=== PATIENT | male | born 1995 | race African-American/Black ===

== ENCOUNTER 2016-06-26 10:01 | Emergency (ER) | payer OTHER ==
[~2016-06-26] VITALS: Ht 195.6 cm; Wt 86.2 kg
[~2016-06-26 10:01] MED LIST: IBUPROFEN; ONDAN4ODT PO
--- NOTE | 2016-06-26 11:00 | ED General ---
General Chief Complaint: General Problems/Pain Stated Complaint: STOMACH PAIN/DIARRHEA Nursing Triage Note: AMB TO ROOM C/O ABD CRAMPING WITH DIARRHEA LAST STOOL THIS AM CONGESTION SORE THROAT. Nursing Sepsis Screen: No Definite Risk Source of Information: Patient History of Present Illness Time Seen by Provider: 10:45 Initial Comments MULTIPLE COMPLAINTS C/O ABDOMINAL CRAMPING WITH NAUSEA/VOMITING/DIARRHEA SINCE YESTERDAY--VOMITED X 2 YESTERDAY, DIARRHEA X 1 THIS AM. ABLE TO KEEP DOWN LIQUIDS C/O COUGH--OCCASIONAL CLEAR SPUTUM C/O NASAL CONGESTION C/O SORE THROAT C/O HEADACHE C/O BODY ACHES HAS HAD SUBJECTIVE FEVER/SWEATS NO CHEST PAIN OR SHORTNESS OF BREATH NO DIFFICULTY URINATING NO KNOWN SICK CONTACTS HAS TAKEN NOTHING FOR SYMPTOMS NO DR--STATES HE NORMALLY GOES TO [facility] ER FOR ALL MEDICAL CARE Allergies and Home Medications Allergies Coded Allergies: NKANo Known Allergies (Unverified Allergy, Mild, 12/13/08) Home Medications No Active Prescriptions or Reported Meds Constitutional: see HPI chills diaphoresis fever malaise EENTM: nose congestion throat pain Respiratory: cough dyspnea on exertionNo short of breath, No wheezing Cardiovascular: no symptoms reportedNo chest pain Gastrointestinal: see HPI abdominal pain diarrhea nausea vomiting Genitourinary: no symptoms reported Musculoskeletal: see HPI (BODY ACHES) Skin: no symptoms reported Psychiatric/Neurological: See HPI HeadacheDenies Numbness, Denies Paresthesia , Denies Seizure, Denies Tingling, Denies Tremors, Denies Weakness Hematologic/Lymphatic: No Symptoms Reported Immunological/Allergic: no symptoms reported Past Ncwzfhc-Poaagc-Uhxdkp Hx Patient Social History Alcohol Use: Denies Use Recreational Drug Use: No Smoking Status: Never a Smoker Recent Foreign Travel: No Contact w/Someone Who Travel: No Recent Infectious Disease Expo: No Recent Hopitalizations: No Physical Abuse Screen: No Sexual Abuse: No Seasonal Allergies Seasonal Allergies: No Surgeries HX Surgeries: No Respiratory Hx Respiratory Disorders: No Cardiovascular Hx Cardiac Disorders: No Neurological Hx Neurological Disorders: No Genitourinary Hx Genitourinary Disorders: No Gastrointestinal Hx Gastrointestinal Disorders: No Musculoskeletal Hx Musculoskeletal Disorders: No Endocrine Hx Endocrine Disorders: No HEENT HX ENT Disorders: No Cancer Hx Cancer: No Psychosocial Hx Psychiatric Problems: No Integumentary HX Skin/Integumentary Disorder: No Blood Transfusions Hx Blood Disorders: No Adverse Reaction to a Blood Tr: No Physical Exam Vital Signs Vital Sign - Last 12Hours 06/26/16 10:26 Temp 97.3 Pulse 71 Resp 18 B/P 147/87 Pulse Ox 95 O2 Delivery Room Air Capillary Refill : Less Than 3 Seconds General Appearance: No Apparent Distress WD/WN Thin HEENT: PERRL/EOMI TMs Normal Normal ENT Inspection Pharynx Normal Neck: Full Range of Motion Normal Inspection Non Tender SuppleNo Lymphadenopathy (L), No Lymphadenopathy (R) Respiratory: Normal Breath Sounds No Accessory Muscle Use No Respiratory Distress Cardiovascular: Regular Rate, Rhythm No Edema No JVD No Murmur Normal Peripheral Pulses Gastrointestinal: Normal Bowel Sounds No Organomegaly No Pulsatile Mass Non Tender Soft Back: Normal Inspection No CVA Tenderness No Vertebral Tenderness Extremity: Normal Capillary Refill Normal Inspection Normal Range of Motion Non Tender No Calf Tenderness No Pedal Edema Neurologic/Psychiatric: Alert Oriented x3 No Motor/Sensory Deficits Normal Mood/Affect mixer runner II-XII Norm as Tested Skin: Normal Color Warm/DryNo Rash Progress/Results/Core Measures Results/Orders Micro Results Microbiology 06/26/16 Influenza Types A,B Antigen (TYRESE) - Final, Complete My Orders Orders-ANDRY CIFUENTES DO Influenza A And B Antigens (06/26/16 10:55) Vital Signs/I&O Vital Sign - Last 12Hours 06/26/16 10:26 Temp 97.3 Pulse 71 Resp 18 B/P 147/87 Pulse Ox 95 O2 Delivery Room Air Blood Pressure Mean: 107 Departure Impression Impression: Primary Impression: Viral syndrome Disposition: 01 HOME, SELF-CARE Condition: Stable Departure-Patient Inst. Referrals: NO,LOCAL PHYSICIAN (PCP/Family) Primary Care Physician Patient Instructions: VIRAL SYNDROME Add. Discharge Instructions: LOTS OF CLEAR LIQUIDS--WATER, BROTH, JELLO, GATORADE BRATS DIET--BANANAS, RICE, APPLESAUCE, TOAST, SALTINES TYLENOL 1 GRAM / MOTRIN 800 MG NEEDED FOR PAIN OR FEVER ROBITUSSIN DM FOR COUGH ] FOLLOW UP WITH DR OF CHOICE IN 2-3 DAYS IF NO BETTER All discharge instructions reviewed with patient and/or family. Voiced understanding. Scripts Benzonatate (Tessalon Perle)100 Mg [id number] Mg PO TID COUGH #20 CAP Prov:ANDRY CIFUENTES DO 06/26/16 Ondansetron (Zofran Odt)4 Mg Tab.rapdis4 Mg PO Q4H Nausea/Vomiting #10 TAB Prov:ANDRY CIFUENTES DO 06/26/16 Work/School Note: Work Release Form Date Seen in the Emergency Department: Jun 26, 2016 Return to Work: Jun 28, 2016 Restrictions: No Restrictions ANDRY CIFUENTES DO Jun 26, 2016 11:00
[2016-06-26] MEDS ORDERED: ONDA4TAB8 PO (11:29)
[2016-06-26] MEDS ORDERED: BENZ-13 PO (11:29)
[2016-06-26 11:34] VITALS: BP 140/70
== END 2016-06-26 11:34 | disposition home or self-care (01) ==
LOC: EDUNIT# 10:01 → ER 10:03
DX: R19.7 Diarrhea, unspecified (principal); B34.9 Viral infection, unspecified
CPT/HCPCS: 87804; 99283

== ENCOUNTER 2016-07-31 15:14 | Emergency (ER) | payer OTHER ==
[~2016-07-31] VITALS: Ht 195.6 cm; Wt 86.2 kg
[~2016-07-31 15:14] MED LIST changes: +BENZ-13 PO; +ONDA4TAB8 PO
--- OUTSIDE RECORDS SUMMARY | 2016-07-31 15:19 | XMS REPORT | Continuity of Care Document ---
Author Author [facility] Organization [facility] Address Unknown Phone Unavailable Care Team Providers Care Commercial Underwriter Name Role Phone NO, LOCAL PHYSICIAN PCP Unavailable Insurance Providers Payer Name Policy Number Subscriber Name Relationship Self Pay Joshua Salgado 18 Self / Same As Patient Advance Directives Directive Response Recorded Date/Time Advance Directives No 06/26/16 10:41am Health Care Power of Airline Transport Pilot No 06/26/16 10:41am Organ Donor No 06/26/16 10:41am Resuscitation Status Full Code 06/26/16 10:41am Chief Complaint and Reason for Visit Chief Complaint General Problems/Pain Reason for Visit [id number] Problems Active Problems Medical Problem Onset Date Status Atypical chest pain Unknown Acute Atypical chest pain Unknown Acute Viral syndrome Unknown Acute Medications Current Home Medications Medication Dose Units Route Directions Days/Qty Instructions Start Date Ondansetron 4 Mg 4 Mg Oral Every 4HRS for Nausea/Vomiting 06/26/16 Benzonatate 100 Mg 100 Mg Oral Three Times A Day for Cough 06/26/16 Past Home Medications Medication Directions Ordered Status Ibuprofen , 12/13/08 Discontinued Ondansetron Hcl 4 Mg Tab, 4 Mg Oral Every 4HRS 12/29/10 Discontinued Social History Social History Problem Response Recorded Date/Time Alcohol Use Occasionally Uses 06/20/2014 6:17pm Recreational Drug Use No 06/20/2014 6:17pm Recent Foreign Travel No 06/26/2016 10:26am Recent Infectious Disease Exposure No 06/26/2016 10:26am Hospitalization with Isolation Denies 06/26/2016 10:26am Smoking Status Never a Smoker 06/26/2016 10:41am Recent Hopitalizations No 06/26/2016 10:41am Hospitalization with Isolation Denies 06/26/2016 10:26am Query Response Start Date Stop Date Smoking Status Never a Smoker Hospital Discharge Instructions No hospital discharge instructions. Plan of Care Discharge Date 06/26/16 11:34am Disposition 01 HOME, SELF-CARE Condition at Discharge Stable Instructions/Education Provided VIRAL SYNDROME Forms Provided Work Release Form Prescriptions See Medication Section Referrals NO,LOCAL PHYSICIAN - Primary Care Physician Additional Instructions/Education LOTS OF CLEAR LIQUIDS--WATER, BROTH, JELLO, GATORADE BRATS DIET--BANANAS, RICE, APPLESAUCE, TOAST, SALTINES TYLENOL 1 GRAM / MOTRIN 800 MG NEEDED FOR PAIN OR FEVER ROBITUSSIN DM FOR COUGH ] FOLLOW UP WITH DR OF CHOICE IN 2-3 DAYS IF NO BETTER All discharge instructions reviewed with patient and/or family. Voiced understanding. Functional Status No functional status results. Allergies, Adverse Reactions, Alerts Allergen Type Severity Reaction Status Last Updated NKANo Known Allergies Allergy Mild Active 12/13/08 Immunizations No immunization records. Vital Signs Acute Vital Signs Vital Response Date/Time Temperature (Fahrenheit) 97.3 degrees F (97.6 - 99.5) 06/26/2016 10:26am Temperature (Calculated Celsius) 36.96099 degrees C (36.4 - 37.5) 06/26/2016 10:26am Pulse Rate (adult) 71 bpm (60 - 90) 06/26/2016 10:26am Respiratory Rate 18 bpm (12 - 24) 06/26/2016 10:26am O2 Sat by Pulse Oximetry 95 % (88 - 100) 06/26/2016 10:26am Blood Pressure 147/87 mm Hg 06/26/2016 10:26am Blood Pressure Mean 107 mm Hg 06/26/2016 10:26am Pain Numeric Pain Scale 7 06/26/2016 10:26am Height (Feet) 6 feet 06/26/2016 10:26am Height (Inches) 5 inches 06/26/2016 10:26am Height (Calculated Centimeters) 195.308036 cm 06/26/2016 10:26am Weight (Pounds) 190 pounds 06/26/2016 10:26am Weight (Calculated Kilograms) 86.281342 kilograms 06/26/2016 10:26am Capillary Refill Capillary Refill Less Than 3 Seconds 06/26/2016 10:26am Height 6 ft 5 in Weight 190 lb Body Mass Index 22.5 kg/m^2 Results No known relevant diagnostic tests, laboratory data and/or discharge summary. Procedures No known history of procedures. Encounters Encounter Location Arrival/Admit Date Discharge/Depart Date Attending Provider Departed Emergency Room [facility] 06/26/16 10:03am 07/12 11:34am ANDRY CIFUENTES DO Recent Diagnosis
[2016-07-31 15:57] LABS: BASOPHILS % (AUTO) 0 % (0-10); EOSINOPHILS % (AUTO) 0 % (0-10); LYMPHOCYTES # (AUTO) 2.3 X 10^3 (1.0-4.0); LYMPHOCYTES % (AUTO) 23 % (12-44); MEAN CORPUSCULAR HEMOGLOBIN 31 PG (25-34); MEAN CORPUSCULAR HGB CONC 36 G/DL (32-36); MEAN CORPUSCULAR VOLUME 84 FL (80-99); MEAN PLATELET VOLUME 9.2 FL (7.4-10.4); MONOCYTES # (AUTO) 1.1 X 10^3 (0.0-1.0); MONOCYTES % (AUTO) 11 % (0-12); NEUTROPHILS # (AUTO) 6.4 X 10^3 (1.8-7.8); NEUTROPHILS % (AUTO) 66 % (42-75); PLATELET COUNT 236 10^3/uL (130-400); RED CELL DISTRIBUTION WIDTH 12.3 % (10.0-14.5); WHITE BLOOD COUNT 9.8 10^3/uL (4.3-11.0)
[2016-07-31 16:04] LABS: KETONES,URINE 2+ (NEGATIVE); LEUKOCYTE ESTERASE ,URINE NEGATIVE (NEGATIVE); NITRITE,URINE NEGATIVE (NEGATIVE); PH,URINE 6 (5-9); PROTEIN,URINE 2+ (NEGATIVE); UROBILINOGEN,URINE 8 MG/DL (NORMAL)
[2016-07-31 16:12] LABS: BILIRUBIN,URINE NEGATIVE (NEGATIVE)
[2016-07-31 16:14] LABS: ALANINE AMINOTRANSFERASE 64 U/L (0-55); ALBUMIN 4.6 G/DL (3.2-4.5); ANION GAP 13 MMOL/L (5-14); ASPARTATE AMINO TRANSFERASE 22 U/L (5-34); BILIRUBIN,TOTAL 2.9 MG/DL (0.1-1.0); BLOOD UREA NITROGEN 14 MG/DL (7-18); BUN/CREATININE RATIO 13; CALCIUM 9.6 MG/DL (8.5-10.1); CARBON DIOXIDE 22 MMOL/L (21-32); CHLORIDE 104 MMOL/L (98-107); GFR ESTIMATED > 60; GLUCOSE 101 MG/DL (70-105); LIPASE 9 U/L (8-78); POTASSIUM 3.5 MMOL/L (3.6-5.0); SODIUM 139 MMOL/L (135-145); TOTAL PROTEIN 7.4 G/DL (6.4-8.2)
[2016-07-31] MEDS ORDERED: NS IV 1000 ML 1,000 ML IV ONE (16:17)
[2016-07-31] MEDS ORDERED: ONDANSETRON 4 MG/2 ML (SDV) Z0FRAN IVP ONE (16:30)
--- NOTE | 2016-07-31 16:35 | ED GI ---
General Chief Complaint: Abdominal/GI Problems Stated Complaint: VOMITING/NO APPETITE Nursing Triage Note: Pt reports nausea and vomiting x5 days. Pt reports he has been unable to keep solid foods down but has been able to keep fluids and gatorade down. Pt denies abd pain or diarrhea. Sepsis Screen: No Definite Risk Source of Information: Patient Exam Limitations: No Limitations History of Present Illness Time Seen By Provider: 16:35 Initial Comments 20-year-old male patient presents to the emergency department complains of nausea and vomiting for 5 days. Denies abdominal pain, diarrhea, dysuria, frequency, hematuria. Patient is able to keep liquids down. Difficulty with solids. Timing/Duration: 4-5 Days, Constant Severity/Quality: Moderate Activities at Onset: None Modifying Factors: Worsens With Eating Allergies and Home Medications Allergies Coded Allergies: NKANo Known Allergies (Unverified Allergy, Mild, 12/13/08) Home Medications Benzonatate 100 Mg Capsule #20 100 MG PO TID Prescribed by: ANDRY CIFUENTES on 06/26/16 1129 Ondansetron 4 Mg Tab.rapdis #10 4 MG PO Q4H Prescribed by: ANDRY CIFUENTES on 06/26/16 1129 Ondansetron 8 Mg Tab.rapdis #10 8 MG PO Q6H PRN PRN NAUSEA/VOMITING Prescribed by: RAUL WARE on 07/31/16 1729 Review of Systems Constitutional: No chills, No dizziness, No fever, malaise other (fatigue) EENTM: No Symptoms Reported Respiratory: No Symptoms Reported Cardiovascular: No Symptoms Reported Gastrointestinal: See HPIDenies Abdomen Distended, Denies Abdominal Pain, Denies Constipated, Denies Diarrhea, Nausea Poor AppetiteDenies Poor Fluid Intake, Denies Rectal Bleeding, Vomiting Genitourinary: Denies Burning, Denies Discharge, Denies Frequency, Denies Flank Pain, Denies Hematuria, Denies Pain Musculoskeletal: no symptoms reported Skin: no symptoms reported Psychiatric/Neurological: No Symptoms Reported All Other Systems Reviewed Negative Unless Noted: Yes (Negative excepted noted.) Past Rqgoafi-Twsexv-Rwylxj Hx Patient Social History Alcohol Use: Denies Use Recreational Drug Use: No Smoking Status: Never a Smoker Recent Foreign Travel: No Contact w/Someone Who Travel: No Recent Infectious Disease Expo: No Recent Hopitalizations: No Seasonal Allergies Seasonal Allergies: No Surgeries HX Surgeries: No Respiratory Hx Respiratory Disorders: No Cardiovascular Hx Cardiac Disorders: No Neurological Hx Neurological Disorders: No Genitourinary Hx Genitourinary Disorders: No Gastrointestinal Hx Gastrointestinal Disorders: No Musculoskeletal Hx Musculoskeletal Disorders: No Endocrine Hx Endocrine Disorders: No HEENT HX ENT Disorders: No Cancer Hx Cancer: No Psychosocial Hx Psychiatric Problems: No Integumentary HX Skin/Integumentary Disorder: No Blood Transfusions Hx Blood Disorders: No Adverse Reaction to a Blood Tr: No Reviewed Nursing Assessment Reviewed/Agree w Nursing PMH: Yes Family Medical History Significant Family History: No Pertinent Family Hx Physical Exam Vital Signs VS - Last 72 Hours, by Label 07/31/16 07/31/16 15:40 17:38 Temp 97.7 97.7 Pulse 72 68 Resp 18 18 B/P 125/95 Pulse Ox 97 97 O2 Delivery Room Air Capillary Refill : Less Than 3 Seconds General Appearance: WD/WN no apparent distress HEENT: PERRL/EOMI pharynx normal Neck: supple normal inspection Respiratory: lungs clear normal breath sounds no respiratory distress Cardiovascular: normal peripheral pulses regular rate, rhythm no edema no murmur Gastrointestinal: normal bowel sounds non tender soft no organomegalyNo distended Extremities: no pedal edema normal capillary refill Neurologic/Psychiatric: alert normal mood/affect oriented x 3 Skin: normal color warm/dry Progress/Results/Core Measures Results/Orders Lab Results Laboratory Tests Test 07/31/16 15:47 07/31/16 15:56 Range/Units Alanine Aminotransferase (ALT/SGPT) 64 H 0-55 U/L Albumin 4.6 H 3.2-4.5 G/DL Alkaline Phosphatase 63 40-136 U/L Anion Gap 13 5-14 MMOL/L Aspartate Amino Transf (AST/SGOT) 22 5-34 U/L BUN/Creatinine Ratio 13 Basophils # (Auto) 0.0 0.0-0.1 10^3/uL Basophils (%) (Auto) 0 0-10 % Blood Urea Nitrogen 14 7-18 MG/DL Calcium Level 9.6 8.5-10.1 MG/DL Carbon Dioxide Level 22 21-32 MMOL/L Chloride Level 104 98-107 MMOL/L Creatinine 1.10 0.60-1.30 MG/DL Eosinophils # (Auto) 0.0 0.0-0.3 10^3/uL Eosinophils (%) (Auto) 0 0-10 % Estimat Glomerular Filtration Rate > 60 Glucose Level 101 70-105 MG/DL Hematocrit 43 40-54 % Hemoglobin 15.6 13.3-17.7 G/DL Lipase 9 8-78 U/L Lymphocytes # (Auto) 2.3 1.0-4.0 X 10^3 Lymphocytes (%) (Auto) 23 12-44 % Mean Corpuscular Hemoglobin 31 25-34 PG Mean Corpuscular Hemoglobin Concent 36 32-36 G/DL Mean Corpuscular Volume 84 80-99 FL Mean Platelet Volume 9.2 7.4-10.4 FL Monocytes # (Auto) 1.1 H 0.0-1.0 X 10^3 Monocytes (%) (Auto) 11 0-12 % Neutrophils # (Auto) 6.4 1.8-7.8 X 10^3 Neutrophils (%) (Auto) 66 42-75 % Platelet Count 236 130-400 10^3/uL Potassium Level 3.5 L 3.6-5.0 MMOL/L Red Blood Count 5.10 4.35-5.85 10^6/uL Red Cell Distribution Width 12.3 10.0-14.5 % Sodium Level 139 135-145 MMOL/L Total Bilirubin 2.9 H 0.1-1.0 MG/DL Total Protein 7.4 6.4-8.2 G/DL White Blood Count 9.8 4.3-11.0 10^3/uL Urine Bacteria NONE /HPF Urine Bilirubin NEGATIVE NEGATIVE Urine Casts NONE /LPF Urine Clarity CLEAR Urine Color YELLOW Urine Crystals NONE /LPF Urine Culture Indicated NO Urine Glucose (UA) NEGATIVE NEGATIVE Urine Ketones 2+ H NEGATIVE Urine Leukocyte Esterase NEGATIVE NEGATIVE Urine Mucus MODERATE H /LPF Urine Nitrite NEGATIVE NEGATIVE Urine Protein 2+ H NEGATIVE Urine RBC NONE /HPF Urine RBC (Auto) NEGATIVE NEGATIVE Urine Specific [place] 1.025 H 1.016-1.022 Urine Urobilinogen 8 H NORMAL MG/DL Urine WBC NONE /HPF Urine pH 6 5-9 RAUL Brown Cbc With Automated Diff (07/31/16 15:50) Comprehensive Metabolic Panel (07/31/16 15:50) Lipase (07/31/16 15:50) Ua Culture If Indicated (07/31/16 15:50) Saline Lock/Iv-Start (07/31/16 15:50) Ondansetron Injection (Zofran Injectio (07/31/16 16:30) Ns Iv 1000 Ml (Sodium Chloride 0.9%) (07/31/16 16:17) Rx-Ondansetron Po (Rx-Zofran Po) (07/31/16 17:26) Medications Given in ED Current Medications Medications Dose Ordered Sig/Dustin Route Start Time Stop Time Status Last Admin Dose Admin Ondansetron HCl 4 mg 4 mg ONCE ONCE IVP 07/31/16 16:30 07/31/16 16:31 DC 07/31/16 16:29 4 MG Sodium Chloride 1,000 ml @ 0 mls/hr Q0M ONCE IV 07/31/16 16:17 07/31/16 16:19 DC 07/31/16 16:29 999 MLS/HR Vital Signs/I&O Vital Sign - Last 12Hours 07/31/16 07/31/16 15:40 17:38 Temp 97.7 97.7 Pulse 72 68 Resp 18 18 B/P 125/95 Pulse Ox 97 97 O2 Delivery Room Air Blood Pressure Mean: 105 Departure Communication Progress Notes Laboratory findings discussed with the patient. Patient reports feeling better at this time. Reports he is feeling hungry for the first time in 5 days. Plan for discharge to home. All return precautions were discussed with the patient as described in the discharge instructions of this report. Patient voices understanding and agrees with the treatment plan. Impression Impression: Primary Impression: Nausea and vomiting Qualified Code: R11.2 - Nausea with vomiting, unspecified Disposition: 01 HOME, SELF-CARE Condition: Improved Departure-Patient Inst. Decision time for Depature: 17:28 Referrals: NO,LOCAL PHYSICIAN (PCP/Family) Primary Care Physician Patient Instructions: Nausea and Vomiting, Adult (DC) Add. Discharge Instructions: All discharge instructions reviewed with patient and/or family. Voiced understanding. Medications as instructed. Tylenol extra strength over-the- counter as directed for pain or fever. Ibuprofen 800 mg by mouth every 8 hours as needed for pain or fever. Push fluids. Alternate water and Gatorade/ Powerade. Low-fat, bland diet. Increase diet as tolerated. Follow-up with your family practitioner if no improvement in symptoms. Return to the emergency department for worsened vomiting, fever, abdominal pain, diarrhea, rectal bleeding, inability to urinate, blood in the urine, or any other concerns. Scripts Ondansetron (Ondansetron Odt)8 Mg Tab.rapdis8 Mg PO Q6H PRN NAUSEA/VOMITING #10 TAB Ref 0 Prov:RAUL WARE 07/31/16 Work/School Note: [employer], Work Release Form Date Seen in the Emergency Department: Jul 31, 2016 Return to Work: Aug 02, 2016 Restrictions: No Restrictions RAUL WARE Jul 31, 2016 16:35
[2016-07-31] MEDS ORDERED: RX-ONDANSETRON 4 MG ODT (ZOFRAN) PPK #4 PO STA (17:26)
[2016-07-31] MEDS ORDERED: ONDA8TAB13 PO (17:29)
[2016-07-31 17:38] VITALS: BP 118/87
[2016-08-01] MEDS ORDERED: PROC5TAB52 PO (16:06)
== END 2016-07-31 17:38 | disposition home or self-care (01) ==
LOC: EDUNIT# 15:14 → ER 15:15
DX: R11.2 Nausea with vomiting, unspecified (principal)
CPT/HCPCS: 36415; 80053; 81000; 83690; 85025; 96361; 96374

== ENCOUNTER 2016-08-01 13:59 | Emergency (ER) | payer OTHER ==
[~2016-08-01] VITALS: Ht 195.6 cm; Wt 86.2 kg
[~2016-08-01 13:59] MED LIST changes: +ONDA8TAB13 PO
--- OUTSIDE RECORDS SUMMARY | 2016-08-01 14:05 | XMS REPORT | Continuity of Care Document ---
Author Author [facility] Organization [facility] Address Unknown Phone Unavailable Care Team Providers Care Plate Setter Name Role Phone NO, LOCAL PHYSICIAN PCP Unavailable Insurance Providers Payer Name Policy Number Subscriber Name Relationship Self Pay Joshua Salgado 18 Self / Same As Patient Advance Directives Directive Response Recorded Date/Time Advance Directives No 06/26/16 10:41am Health Care Power of Stock Buyer No 06/26/16 10:41am Organ Donor No 06/26/16 10:41am Resuscitation Status Full Code 06/26/16 10:41am Chief Complaint and Reason for Visit Chief Complaint General Problems/Pain Reason for Visit [id number] Problems Active Problems Medical Problem Onset Date [...] - 99.5) 06/26/2016 10:26am Temperature (Calculated Celsius) 36.10159 degrees C (36.4 - 37.5) 06/26/2016 10:26am [...] 5 inches 06/26/2016 10:26am Height (Calculated Centimeters) 195.489595 cm 06/26/2016 10:26am Weight (Pounds) 190 pounds 06/26/2016 10:26am Weight (Calculated Kilograms) 86.250541 kilograms 06/26/2016 10:26am Capillary Refill Capillary Refill Less Than 3 Seconds 06/26/2016 10:26am Height 6 ft 5 in Weight 190 lb Body Mass Index 22.5 kg/m^2 Results No known relevant diagnostic tests, laboratory data and/or discharge summary. Procedures No known history of procedures. Encounters Encounter Location Arrival/Admit Date Discharge/Depart Date Attending Provider Departed Emergency Room [facility] 06/26/16 10:03am 07/12 11:34am ANDRY CIFUENTES DO Recent Diagnosis
[2016-08-01] MEDS ORDERED: diphenhydrAMINE 50 MG/ML INJ (BENADRYL) IVP ONE (14:45)
[2016-08-01] MEDS ORDERED: PROCHLORPERAZINE 10 MG/2ML INJ (COMPAZINE) IV ONE (14:45)
--- NOTE | 2016-08-01 14:49 | ED Abdominal Pain ---
General Chief Complaint: Abdominal/GI Problems Stated Complaint: VOMITING Nursing Triage Note: pt reports nausea/vomiting starting monday. pt cedts was seen in ed yesterday and given fluids and nausea medicine. Pt reports no improvement today. Sepsis Screen: No Definite Risk Source of Information: Patient Exam Limitations: No Limitations History of Present Illness Time Seen By Provider: 14:47 Initial Comments To ER with nausea and vomiting starting 5 days ago. He was seen here yesterday and given a prescription for Zofran as well as Zofran in the emergency room which helped his symptoms. Symptoms have returned today including nausea and vomiting without diarrhea and without abdominal pain. He states that he has not yet picked up a Zofran prescription. Timing/Duration: 1-2 Days Severity/Quality: Moderate Activities at Onset: None Associated Symptoms: Nausea/Vomiting Allergies and Home Medications Allergies Coded Allergies: NKANo Known Allergies (Unverified Allergy, Mild, 12/13/08) Home Medications Ondansetron 8 Mg Tab.rapdis #10 8 MG PO Q6H PRN PRN NAUSEA/VOMITING Prescribed by: RAUL WARE on 07/31/16 1729 Prochlorperazine Maleate 5 Mg Tablet #10 5 MG PO Q8H PRN PRN NAUSEA/VOMITING Prescribed by: LOWELL PATTERSON on 08/01/16 1606 Review of Systems Constitutional: see HPI EENTM: No Symptoms Reported Respiratory: No Symptoms Reported Cardiovascular: No Symptoms Reported Gastrointestinal: See HPIDenies Abdominal Pain, Nausea Vomiting Genitourinary: No Symptoms Reported Musculoskeletal: no symptoms reported Skin: no symptoms reported Psychiatric/Neurological: No Symptoms Reported Endocrine: No Symptoms Reported Past Xouhqei-Jhidzk-Tqbnjw Hx Patient Social History Alcohol Use: Denies Use Recreational Drug Use: Yes Drug of Choice: marijuana Smoking Status: Never a Smoker Recent Foreign Travel: No Contact w/Someone Who Travel: No Recent Infectious Disease Expo: No Recent Hopitalizations: No Seasonal Allergies Seasonal Allergies: No Surgeries HX Surgeries: No Respiratory Hx Respiratory Disorders: No Cardiovascular Hx Cardiac Disorders: No Neurological Hx Neurological Disorders: No Reproductive System Hx Reproductive Disorders: No Genitourinary Hx Genitourinary Disorders: No Gastrointestinal Hx Gastrointestinal Disorders: No Musculoskeletal Hx Musculoskeletal Disorders: No Endocrine Hx Endocrine Disorders: No HEENT HX ENT Disorders: No Cancer Hx Cancer: No Psychosocial Hx Psychiatric Problems: No Integumentary HX Skin/Integumentary Disorder: No Blood Transfusions Hx Blood Disorders: No Adverse Reaction to a Blood Tr: No Family Medical History Significant Family History: No Pertinent Family Hx Physical Exam Vital Signs VS - Last 72 Hours, by Label 08/01/16 14:39 Temp 99.1 Pulse 60 Resp 18 B/P 143/89 Pulse Ox 97 O2 Delivery Room Air Capillary Refill : Less Than 3 Seconds General Appearance: WD/WN no apparent distress HEENT: PERRL/EOMI normal ENT inspection Neck: non-tender full range of motion Respiratory: no respiratory distress no accessory muscle use Cardiovascular: regular rate, rhythm no murmur Gastrointestinal: normal bowel sounds non tender soft Extremities: normal range of motion non-tender normal inspection Neurologic/Psychiatric: alert normal mood/affect oriented x 3 Skin: normal color warm/dry Progress/Results/Core Measures Results/Orders Lab Results Laboratory Tests Test 08/01/16 14:57 Range/Units Alanine Aminotransferase (ALT/SGPT) 48 0-55 U/L Albumin 4.3 3.2-4.5 G/DL Alkaline Phosphatase 56 40-136 U/L Anion Gap 11 5-14 MMOL/L Aspartate Amino Transf (AST/SGOT) 18 5-34 U/L BUN/Creatinine Ratio 12 Basophils # (Auto) 0.0 0.0-0.1 10^3/uL Basophils (%) (Auto) 0 0-10 % Blood Urea Nitrogen 12 7-18 MG/DL Calcium Level 9.0 8.5-10.1 MG/DL Carbon Dioxide Level 24 21-32 MMOL/L Chloride Level 106 98-107 MMOL/L Creatinine 0.99 0.60-1.30 MG/DL Eosinophils # (Auto) 0.0 0.0-0.3 10^3/uL Eosinophils (%) (Auto) 0 0-10 % Estimat Glomerular Filtration Rate > 60 Glucose Level 90 70-105 MG/DL Hematocrit 41 40-54 % Hemoglobin 14.9 13.3-17.7 G/DL Lipase 6 L 8-78 U/L Lymphocytes # (Auto) 1.6 1.0-4.0 X 10^3 Lymphocytes (%) (Auto) 20 12-44 % Mean Corpuscular Hemoglobin 31 25-34 PG Mean Corpuscular Hemoglobin Concent 36 32-36 G/DL Mean Corpuscular Volume 84 80-99 FL Mean Platelet Volume 9.5 7.4-10.4 FL Monocytes # (Auto) 0.9 0.0-1.0 X 10^3 Monocytes (%) (Auto) 11 0-12 % Neutrophils # (Auto) 5.5 1.8-7.8 X 10^3 Neutrophils (%) (Auto) 68 42-75 % Platelet Count 220 130-400 10^3/uL Potassium Level 3.3 L 3.6-5.0 MMOL/L Red Blood Count 4.86 4.35-5.85 10^6/uL Red Cell Distribution Width 12.1 10.0-14.5 % Sodium Level 141 135-145 MMOL/L Total Bilirubin 2.8 H 0.1-1.0 MG/DL Total Protein 6.8 6.4-8.2 G/DL Ur Tricyclic Antidepressants Screen NEGATIVE NEGATIVE Urine Amphetamines Screen NEGATIVE NEGATIVE Urine Bacteria NEGATIVE /HPF Urine Barbiturates Screen NEGATIVE NEGATIVE Urine Benzodiazepines Screen NEGATIVE NEGATIVE Urine Bilirubin 1+ H NEGATIVE Urine Cannabinoids Screen POSITIVE H NEGATIVE Urine Casts NONE /LPF Urine Clarity CLEAR Urine Cocaine Screen NEGATIVE NEGATIVE Urine Color YELLOW Urine Crystals NONE /LPF Urine Culture Indicated NO Urine Glucose (UA) NEGATIVE NEGATIVE Urine Ketones 4+ H NEGATIVE Urine Leukocyte Esterase 1+ H NEGATIVE Urine Methadone Screen NEGATIVE NEGATIVE Urine Methamphetamines Screen NEGATIVE NEGATIVE Urine Mucus LARGE H /LPF Urine Nitrite NEGATIVE NEGATIVE Urine Opiates Screen NEGATIVE NEGATIVE Urine Oxycodone Screen NEGATIVE NEGATIVE Urine Phencyclidine Screen NEGATIVE NEGATIVE Urine Propoxyphene Screen NEGATIVE NEGATIVE Urine Protein 1+ H NEGATIVE Urine RBC NONE /HPF Urine RBC (Auto) NEGATIVE NEGATIVE Urine Specific [place] 1.015 L 1.016-1.022 Urine Urobilinogen 12 H NORMAL MG/DL Urine WBC RARE /HPF Urine pH 6.5 5-9 White Blood Count 8.1 4.3-11.0 10^3/uL My Orders Orders-LOWELL PATTERSON CAD SPECIALIST Cbc With Automated Diff (08/01/16 14:44) Comprehensive Metabolic Panel (08/01/16 14:44) Lipase (08/01/16 14:44) Ua Culture If Indicated (08/01/16 14:44) Drug Screen Stat (Urine) (08/01/16 14:44) Saline Lock/Iv-Start (08/01/16 14:44) Diphenhydramine Injection (Benadryl Inje (08/01/16 14:45) Prochlorperazine Injection (Compazine In (08/01/16 14:45) Ns Iv 1000 Ml (Sodium Chloride 0.9%) (08/01/16 15:15) Ns Iv 1000 Ml (Sodium Chloride 0.9%) (08/01/16 15:02) Us Gallbladder [id number] (08/01/16 15:33) Medications Given in ED Current Medications Medications Dose Ordered Sig/Dustin Route Start Time Stop Time Status Last Admin Dose Admin Diphenhydramine HCl 25 mg ONCE ONCE IVP 08/01/16 14:45 08/01/16 14:46 DC 08/01/16 15:04 25 MG Prochlorperazine Edisylate 5 mg ONCE ONCE IV 08/01/16 14:45 08/01/16 14:46 DC 08/01/16 15:05 5 MG Vital Signs/I&O Vital Sign - Last 12Hours 08/01/16 14:39 Temp 99.1 Pulse 60 Resp 18 B/P 143/89 Pulse Ox 97 O2 Delivery Room Air Blood Pressure Mean: 107 Diagnostic Imaging Diagonstic Imaging: Ultrasound Comments NAME: JOSHUA BARRETO [facility] REC#: [id number] PT STATUS: REG ER : 1995 PHYSICIAN: LOWELL PATTERSON APRN ADMIT DATE: 08/01/16/ER Draft Date of Exam:08/01/16 US GALLBLADDER [id number] PROCEDURE: US Gallbladder. TECHNIQUE: Multiple real-time grayscale images were obtained over the right upper quadrant in various projections. INDICATION: Nausea and vomiting. FINDINGS: Liver parenchyma is homogeneous with normal echotexture. There are some small polyps in the gallbladder. There are no stones seen. Common duct is not dilated. Pancreas is obscured by bowel gas. Right kidney appears normal. There is no ascites. IMPRESSION: Hyperplastic cholecystosis with some small polyps. Gallbladder sonogram is otherwise unremarkable. Dictated on workstation # [id number] Dict: 08/01/16 1614 Trans: 08/01/16 1620 [id number] Interpreted by: GILMER HENDERSON Electronically signed by: Departure Communication Time/Spoke to Admitting Phy: 16:05 Impression Impression: Primary Impression: Nausea and vomiting Disposition: 01 HOME, SELF-CARE Condition: Improved Departure-Patient Inst. Decision time for Depature: 16:05 Referrals: VIRY MITCHELL BRETT D DO JENKINS, XAVIER M MD KIDO, TAKAAKI MD NO,LOCAL PHYSICIAN (PCP) Primary Care Physician Patient Instructions: Nausea and Vomiting, Adult Add. Discharge Instructions: 1. Drink plenty of fluids 2. Nausea medication as directed 3. Follow-up with a surgeon of your choosing to discuss the gallbladder polyps and whether or not she worked gallbladder needs to be removed All discharge instructions reviewed with patient and/or family. Voiced understanding. Scripts Prochlorperazine Maleate (Compazine)5 Mg Tablet5 Mg PO Q8H PRN NAUSEA/VOMITING # 10 TAB Prov:LOWELL PATTERSON APRN 08/01/16 LOWELL PATTERSON APRN Aug 01, 2016 14:48
[2016-08-01] MEDS ORDERED: NS IV 1000 ML 1,000 ML ONE (15:02)
[2016-08-01 15:08] LABS: BASOPHILS % (AUTO) 0 % (0-10); EOSINOPHILS % (AUTO) 0 % (0-10); LYMPHOCYTES # (AUTO) 1.6 X 10^3 (1.0-4.0); LYMPHOCYTES % (AUTO) 20 % (12-44); MEAN CORPUSCULAR HEMOGLOBIN 31 PG (25-34); MEAN CORPUSCULAR HGB CONC 36 G/DL (32-36); MEAN CORPUSCULAR VOLUME 84 FL (80-99); MEAN PLATELET VOLUME 9.5 FL (7.4-10.4); MONOCYTES # (AUTO) 0.9 X 10^3 (0.0-1.0); MONOCYTES % (AUTO) 11 % (0-12); NEUTROPHILS # (AUTO) 5.5 X 10^3 (1.8-7.8); NEUTROPHILS % (AUTO) 68 % (42-75); PLATELET COUNT 220 10^3/uL (130-400); RED BLOOD COUNT 4.86 10^6/uL (4.35-5.85); RED CELL DISTRIBUTION WIDTH 12.1 % (10.0-14.5); WHITE BLOOD COUNT 8.1 10^3/uL (4.3-11.0)
[2016-08-01 15:15] LABS: KETONES,URINE 4+ (NEGATIVE); LEUKOCYTE ESTERASE ,URINE 1+ (NEGATIVE); NITRITE,URINE NEGATIVE (NEGATIVE); PH,URINE 6.5 (5-9); PROTEIN,URINE 1+ (NEGATIVE); UROBILINOGEN,URINE 12 MG/DL (NORMAL)
[2016-08-01] MEDS ORDERED: NS IV 1000 ML 1,000 ML IV SCH (15:15)
[2016-08-01 15:29] LABS: ALANINE AMINOTRANSFERASE 48 U/L (0-55); ALBUMIN 4.3 G/DL (3.2-4.5); ANION GAP 11 MMOL/L (5-14); ASPARTATE AMINO TRANSFERASE 18 U/L (5-34); BILIRUBIN,TOTAL 2.8 MG/DL (0.1-1.0); BLOOD UREA NITROGEN 12 MG/DL (7-18); BUN/CREATININE RATIO 12; CARBON DIOXIDE 24 MMOL/L (21-32); CHLORIDE 106 MMOL/L (98-107); CREATININE SERUM 0.99 MG/DL (0.60-1.30); GFR ESTIMATED > 60; GLUCOSE 90 MG/DL (70-105); LIPASE 6 U/L (8-78); POTASSIUM 3.3 MMOL/L (3.6-5.0); SODIUM 141 MMOL/L (135-145); TOTAL PROTEIN 6.8 G/DL (6.4-8.2)
[2016-08-01 15:45] LABS: BILIRUBIN,URINE 1+ (NEGATIVE); WBC,URINE RARE /HPF
[2016-08-01] MEDS ORDERED: PROC5TAB52 PO (16:06)
--- NOTE | 2016-08-01 16:21 | Diagnostic Imaging Report ---
PROCEDURE: US Gallbladder. TECHNIQUE: Multiple real-time grayscale images were obtained over the right upper quadrant in various projections. INDICATION: Nausea and vomiting. FINDINGS: Liver parenchyma is homogeneous with normal echotexture. There are some small polyps in the gallbladder. There are no stones seen. Common duct is not dilated. Pancreas is obscured by bowel gas. Right kidney appears normal. There is no ascites. IMPRESSION: Hyperplastic cholecystosis with some small polyps. Gallbladder sonogram is otherwise unremarkable. Dictated by: Dictated on workstation # [id number]
[2016-08-01 16:24] VITALS: BP 132/89
== END 2016-08-01 16:24 | disposition home or self-care (01) ==
LOC: EDUNIT# 13:59 → ER 14:01
DX: R11.2 Nausea with vomiting, unspecified (principal); K82.8 Other specified diseases of gallbladder; K82.4 Cholesterolosis of gallbladder
CPT/HCPCS: 36415; 76705; 80053; 80306; 81000; 83690; 85025; 96361; 96374; 96375

== ENCOUNTER 2016-08-09 16:47 | Emergency (ER) | payer OTHER ==
[~2016-08-09] VITALS: Ht 195.6 cm; Wt 73.5 kg
[~2016-08-09 16:47] MED LIST changes: +PROC5TAB52 PO
--- OUTSIDE RECORDS SUMMARY | 2016-08-09 16:52 | XMS REPORT | Continuity of Care Document ---
Author Author [facility] Organization [facility] Address Unknown Phone Unavailable Care Team Providers Care Log Feeder Name Role Phone NO, LOCAL PHYSICIAN PCP Unavailable Insurance Providers Payer Name Policy Number Subscriber Name Relationship Self Pay Joshua Salgado 16 Self / Same As Patient Advance Directives Directive Response Recorded Date/Time Advance Directives No 06/26/16 10:41am Health Care Power of Civil Cad Designer No 06/26/16 10:41am Organ Donor No 06/26/16 10:41am Resuscitation Status Full Code 06/26/16 10:41am Chief Complaint and Reason for Visit Chief Complaint General Problems/Pain Reason for Visit [id number] Problems Active Problems Medical Problem Onset Date [...] - 99.5) 06/26/2016 10:26am Temperature (Calculated Celsius) 36.13202 degrees C (36.4 - 37.5) 06/26/2016 10:26am [...] 5 inches 06/26/2016 10:26am Height (Calculated Centimeters) 195.680457 cm 06/26/2016 10:26am Weight (Pounds) 190 pounds 06/26/2016 10:26am Weight (Calculated Kilograms) 86.166861 kilograms 06/26/2016 10:26am Capillary Refill Capillary Refill Less Than 3 Seconds 06/26/2016 10:26am Height 6 ft 5 in Weight 190 lb Body Mass Index 22.5 kg/m^2 Results No known relevant diagnostic tests, laboratory data and/or discharge summary. Procedures No known history of procedures. Encounters Encounter Location Arrival/Admit Date Discharge/Depart Date Attending Provider Departed Emergency Room [facility] 06/26/16 10:03am 07/12 11:34am ANDRY CIFUENTES DO Recent Diagnosis
[2016-08-09] MEDS ORDERED: PROC5TAB (17:06)
[2016-08-09] MEDS ORDERED: PROM25TA14 (17:06)
[2016-08-09 17:10] LABS: BASOPHILS % (AUTO) 0 % (0-10); EOSINOPHILS % (AUTO) 0 % (0-10); LYMPHOCYTES # (AUTO) 2.3 X 10^3 (1.0-4.0); LYMPHOCYTES % (AUTO) 22 % (12-44); MEAN CORPUSCULAR HEMOGLOBIN 31 PG (25-34); MEAN CORPUSCULAR HGB CONC 37 G/DL (32-36); MEAN CORPUSCULAR VOLUME 84 FL (80-99); MEAN PLATELET VOLUME 9.3 FL (7.4-10.4); MONOCYTES # (AUTO) 0.8 X 10^3 (0.0-1.0); MONOCYTES % (AUTO) 8 % (0-12); NEUTROPHILS # (AUTO) 7.7 X 10^3 (1.8-7.8); NEUTROPHILS % (AUTO) 71 % (42-75); PLATELET COUNT 238 10^3/uL (130-400); RED CELL DISTRIBUTION WIDTH 12.3 % (10.0-14.5); WHITE BLOOD COUNT 10.8 10^3/uL (4.3-11.0)
[2016-08-09] MEDS ORDERED: diphenhydrAMINE 50 MG/ML INJ (BENADRYL) IVP ONE (17:15)
[2016-08-09] MEDS ORDERED: PROCHLORPERAZINE 10 MG/2ML INJ (COMPAZINE) IV ONE (17:15)
[2016-08-09] MEDS ORDERED: NS IV 1000 ML 1,000 ML IV SCH (17:15)
[2016-08-09 17:25] LABS: ALANINE AMINOTRANSFERASE 22 U/L (0-55); ALBUMIN 4.5 G/DL (3.2-4.5); ANION GAP 13 MMOL/L (5-14); ASPARTATE AMINO TRANSFERASE 15 U/L (5-34); BILIRUBIN,TOTAL 1.8 MG/DL (0.1-1.0); BLOOD UREA NITROGEN 8 MG/DL (7-18); BUN/CREATININE RATIO 8; CALCIUM 9.4 MG/DL (8.5-10.1); CARBON DIOXIDE 26 MMOL/L (21-32); CHLORIDE 100 MMOL/L (98-107); CREATININE SERUM 1.01 MG/DL (0.60-1.30); GFR ESTIMATED > 60; GLUCOSE 105 MG/DL (70-105); LIPASE 9 U/L (8-78); POTASSIUM 3.8 MMOL/L (3.6-5.0); SODIUM 139 MMOL/L (135-145)
--- NOTE | 2016-08-09 17:30 | ED GI ---
General Chief Complaint: Abdominal/GI Problems Stated Complaint: VOMITING Nursing Triage Note: AMB TO ED C/O N/V FOR OVER 2 WEEKS HAS BEEN SEEN IN ED WITH NEG TEST WAS SEEN IN DR'S OFFICE ON MONDAY GIVEN PROMETHAZINE MEDS NOT HELPING. Sepsis Screen: No Definite Risk Source of Information: Patient Exam Limitations: No Limitations History of Present Illness Time Seen By Provider: 17:29 Initial Comments To ER for nausea vomiting abdominal pain for the past 2 weeks. This will be his third visit. States that hot showers only thing that improves this. States that he does smoke marijuana daily except for about the past week Timing/Duration: 1-2 Days Severity/Quality: Moderate Location: Epigastric Radiation: No Radiation Activities at Onset: None Allergies and Home Medications Allergies Coded Allergies: NKANo Known Allergies (Unverified Allergy, Mild, 12/13/08) Home Medications Ondansetron 8 Mg Tab.rapdis #10 8 MG PO Q6H PRN PRN NAUSEA/VOMITING Prescribed by: RAUL WARE on 07/31/16 1729 Prochlorperazine Maleate 5 Mg Tablet #10 5 MG PO Q8H PRN PRN NAUSEA/VOMITING Prescribed by: LOWELL PATTERSON on 08/01/16 1606 Prochlorperazine Maleate 5 Mg Tablet #10 (Reported) Prochlorperazine Maleate 10 Mg Tablet #10 10 MG PO Q8H PRN PRN NAUSEA/VOMITING Prescribed by: LOWELL PATTERSON on 08/09/16 1734 Promethazine HCl 25 Mg Tablet #6 (Reported) Review of Systems Constitutional: see HPI EENTM: No Symptoms Reported Respiratory: No Symptoms Reported Cardiovascular: No Symptoms Reported Gastrointestinal: See HPI Abdominal Pain Nausea Genitourinary: No Symptoms Reported Musculoskeletal: no symptoms reported Skin: no symptoms reported Psychiatric/Neurological: No Symptoms Reported Endocrine: No Symptoms Reported Past Nymkbrb-Bvccfs-Hxrijb Hx Patient Social History Alcohol Use: Denies Use Recreational Drug Use: No Drug of Choice: marijuana Smoking Status: Never a Smoker Recent Foreign Travel: No Contact w/Someone Who Travel: No Recent Infectious Disease Expo: No Recent Hopitalizations: No Seasonal Allergies Seasonal Allergies: No Surgeries HX Surgeries: No Respiratory Hx Respiratory Disorders: No Cardiovascular Hx Cardiac Disorders: No Neurological Hx Neurological Disorders: No Reproductive System Hx Reproductive Disorders: No Genitourinary Hx Genitourinary Disorders: No Gastrointestinal Hx Gastrointestinal Disorders: No Musculoskeletal Hx Musculoskeletal Disorders: No Endocrine Hx Endocrine Disorders: No HEENT HX ENT Disorders: No Cancer Hx Cancer: No Psychosocial Hx Psychiatric Problems: No Integumentary HX Skin/Integumentary Disorder: No Blood Transfusions Hx Blood Disorders: No Adverse Reaction to a Blood Tr: No Family Medical History Significant Family History: No Pertinent Family Hx Physical Exam Vital Signs VS - Last 72 Hours, by Label 08/09/16 16:50 Temp 98.0 Pulse 73 Resp 18 B/P 149/112 O2 Delivery Room Air Capillary Refill : Less Than 3 Seconds General Appearance: WD/WN no apparent distress HEENT: PERRL/EOMI normal ENT inspection Neck: non-tender full range of motion Respiratory: normal breath sounds no respiratory distress no accessory muscle use Cardiovascular: regular rate, rhythm no murmur Gastrointestinal: normal bowel sounds non tender soft Extremities: normal range of motion non-tender Neurologic/Psychiatric: alert normal mood/affect oriented x 3 Skin: normal color warm/dry Exam Comments Patient curled up in the position on the bed Progress/Results/Core Measures Results/Orders Lab Results Laboratory Tests Test 08/09/16 17:00 08/09/16 17:10 Range/Units Basophils # (Auto) 0.0 0.0-0.1 10^3/uL Basophils (%) (Auto) 0 0-10 % Eosinophils # (Auto) 0.0 0.0-0.3 10^3/uL Eosinophils (%) (Auto) 0 0-10 % Hematocrit 43 40-54 % Hemoglobin 15.7 13.3-17.7 G/DL Lymphocytes # (Auto) 2.3 1.0-4.0 X 10^3 Lymphocytes (%) (Auto) 22 12-44 % Mean Corpuscular Hemoglobin 31 25-34 PG Mean Corpuscular Hemoglobin Concent 37 H 32-36 G/DL Mean Corpuscular Volume 84 80-99 FL Mean Platelet Volume 9.3 7.4-10.4 FL Monocytes # (Auto) 0.8 0.0-1.0 X 10^3 Monocytes (%) (Auto) 8 0-12 % Neutrophils # (Auto) 7.7 1.8-7.8 X 10^3 Neutrophils (%) (Auto) 71 42-75 % Platelet Count 238 130-400 10^3/uL Red Blood Count 5.10 4.35-5.85 10^6/uL Red Cell Distribution Width 12.3 10.0-14.5 % White Blood Count 10.8 4.3-11.0 10^3/uL Alanine Aminotransferase (ALT/SGPT) 22 0-55 U/L Albumin 4.5 3.2-4.5 G/DL Alkaline Phosphatase 52 40-136 U/L Anion Gap 13 5-14 MMOL/L Aspartate Amino Transf (AST/SGOT) 15 5-34 U/L BUN/Creatinine Ratio 8 Blood Urea Nitrogen 8 7-18 MG/DL Calcium Level 9.4 8.5-10.1 MG/DL Carbon Dioxide Level 26 21-32 MMOL/L Chloride Level 100 98-107 MMOL/L Creatinine 1.01 0.60-1.30 MG/DL Estimat Glomerular Filtration Rate > 60 Glucose Level 105 70-105 MG/DL Lipase 9 8-78 U/L Potassium Level 3.8 3.6-5.0 MMOL/L Sodium Level 139 135-145 MMOL/L Total Bilirubin 1.8 H 0.1-1.0 MG/DL Total Protein 7.0 6.4-8.2 G/DL My Orders Orders-LOWELL PATTERSON APRN Diphenhydramine Injection (Benadryl Inje (08/09/16 17:15) Prochlorperazine Injection (Compazine In (08/09/16 17:15) Ns Iv 1000 Ml (Sodium Chloride 0.9%) (08/09/16 17:15) Cbc With Automated Diff (08/09/16 17:03) Comprehensive Metabolic Panel (08/09/16 17:03) Lipase (08/09/16 17:03) Ua Culture If Indicated (08/09/16 17:03) Drug Screen Stat (Urine) (08/09/16 17:03) Medications Given in ED Current Medications Medications Dose Ordered Sig/Dustin Route Start Time Stop Time Status Last Admin Dose Admin Diphenhydramine HCl 25 mg ONCE ONCE IVP 08/09/16 17:15 08/09/16 17:16 DC 08/09/16 17:13 25 MG Prochlorperazine Edisylate 10 mg ONCE ONCE IV 08/09/16 17:15 08/09/16 17:16 DC 08/09/16 17:11 10 MG Vital Signs/I&O Vital Sign - Last 12Hours 08/09/16 16:50 Temp 98.0 Pulse 73 Resp 18 B/P 149/112 O2 Delivery Room Air Blood Pressure Mean: 124 Departure Communication Progress Notes 1808- feels better at this time. Unable to urinate for us stating "I'm not going to be able to go" Impression Impression: Primary Impression: Cannabinoid hyperemesis syndrome Disposition: HOME, SELF-CARE Condition: Stable Departure-Patient Inst. Decision time for Depature: 17:32 Referrals: NO,LOCAL PHYSICIAN (PCP/Family) Primary Care Physician Patient Instructions: NO INSTRUCTIONS GIVEN Add. Discharge Instructions: 1. You must stop the marijuana use in order for your symptoms to go away 2. Return to ER for any concerns 3. The nausea medication will help with the nausea but they will not cure this. The cure for this is to significantly reduced your marijuana intake All discharge instructions reviewed with patient and/or family. Voiced understanding. Scripts Prochlorperazine Maleate (Compazine)10 Mg [id number] Mg PO Q8H PRN NAUSEA/ VOMITING #10 TAB Prov:LOWELL PATTERSON APRN 08/09/16 LOWELL PATTERSON APRN Aug 09, 2016 17:30
[2016-08-09] MEDS ORDERED: PROC-1 PO (17:34)
[2016-08-09 18:18] VITALS: BP 146/92
== END 2016-08-09 18:17 | disposition home or self-care (01) ==
LOC: EDUNIT# 16:47 → ER 16:48
DX: F12.188 Cannabis abuse with other cannabis-induced disorder (principal); R11.2 Nausea with vomiting, unspecified
CPT/HCPCS: 36415; 80053; 83690; 85025; 96361; 96374; 96375

== ENCOUNTER 2016-12-14 11:05 | Emergency (ER) | payer OTHER ==
[~2016-12-14] VITALS: Ht 200.7 cm; Wt 86.2 kg
[~2016-12-14 11:05] MED LIST changes: +PROC-1 PO; +PROC5TAB; +PROM25TA14
--- NOTE | 2016-12-14 11:21 | ED Abdominal Pain ---
General Chief Complaint: Abdominal/GI Problems Stated Complaint: VOMITING 3 DAYS Nursing Triage Note: pt ambulated to room. pt complains of vomiting for the past 3 days. pt states "feels like he is starving all the time." Sepsis Screen: No Definite Risk Source of Information: Patient Exam Limitations: No Limitations History of Present Illness Time Seen By Provider: 11:20 Initial Comments To ER with reports of vomiting for 3 days. States that he cannot eat because of the nausea and vomiting. No diarrhea. Diffuse abdominal pain. The only thing that improves this is hot showers. He was here in July for the same diagnosed with hyperemesis cannabinoids syndrome. He continues to smoke marijuana once to twice per day every day. Timing/Duration: 2-3 Days Severity/Quality: Moderate Location: Generalized Abdomen Radiation: No Radiation Activities at Onset: None Associated Symptoms: Nausea/Vomiting Allergies and Home Medications Allergies Coded Allergies: No Known Drug Allergies (Unverified , 12/14/16) Home Medications Prochlorperazine Maleate 10 Mg Tablet, 10 MG PO Q8H PRN for NAUSEA/VOMITING-1ST LINE, #14 Prescribed by: LOWELL PATTERSON on 12/14/16 1236 Review of Systems Constitutional: see HPI EENTM: No Symptoms Reported Respiratory: No Symptoms Reported Cardiovascular: No Symptoms Reported Gastrointestinal: See HPI, Abdominal Pain, Nausea Musculoskeletal: no symptoms reported Skin: no symptoms reported Psychiatric/Neurological: No Symptoms Reported Endocrine: No Symptoms Reported Hematologic/Lymphatic: No Symptoms Reported Past Zqtmhob-Frxnri-Gfeqrh Hx Patient Social History Alcohol Use: Denies Use Recreational Drug Use: Yes Drug of Choice: marijuana Smoking Status: Never a Smoker 2nd Hand Smoke Exposure: No Recent Foreign Travel: No Contact w/Someone Who Travel: No Recent Infectious Disease Expo: No Recent Hopitalizations: No Seasonal Allergies Seasonal Allergies: No Surgeries HX Surgeries: No Respiratory Hx Respiratory Disorders: No Cardiovascular Hx Cardiac Disorders: No Neurological Hx Neurological Disorders: No Reproductive System Hx Reproductive Disorders: No Genitourinary Hx Genitourinary Disorders: No Gastrointestinal Hx Gastrointestinal Disorders: No Musculoskeletal Hx Musculoskeletal Disorders: No Endocrine Hx Endocrine Disorders: No HEENT HX ENT Disorders: No Cancer Hx Cancer: No Psychosocial Hx Psychiatric Problems: No Integumentary HX Skin/Integumentary Disorder: No Blood Transfusions Hx Blood Disorders: No Adverse Reaction to a Blood Tr: No Family Medical History Significant Family History: No Pertinent Family Hx Physical Exam Vital Signs VS - Last 72 Hours, by Label 12/14/16 11:13 Temp 97.3 Pulse 69 Resp 20 B/P (MAP) 117/94 Pulse Ox 97 O2 Delivery Room Air Capillary Refill : Less Than 3 Seconds General Appearance: WD/WN, no apparent distress HEENT: PERRL/EOMI, normal ENT inspection Neck: non-tender, full range of motion Respiratory: no respiratory distress, no accessory muscle use Cardiovascular: regular rate, rhythm, no edema, no murmur Gastrointestinal: normal bowel sounds, non tender, soft Extremities: normal range of motion, non-tender Neurologic/Psychiatric: alert, normal mood/affect, oriented x 3 Skin: normal color, warm/dry Progress/Results/Core Measures Results/Orders Lab Results Laboratory Tests Test 12/14/16 11:11 Range/Units White Blood Count 12.3 H 4.3-11.0 10^3/uL Red Blood Count 5.24 4.35-5.85 10^6/uL Hemoglobin 15.9 13.3-17.7 G/DL Hematocrit 45 40-54 % Mean Corpuscular Volume 87 80-99 FL Mean Corpuscular Hemoglobin 30 25-34 PG Mean Corpuscular Hemoglobin Concent 35 32-36 G/DL Red Cell Distribution Width 12.7 10.0-14.5 % Platelet Count 238 130-400 10^3/uL Mean Platelet Volume 9.7 7.4-10.4 FL Neutrophils (%) (Auto) 71 42-75 % Lymphocytes (%) (Auto) 18 12-44 % Monocytes (%) (Auto) 11 0-12 % Eosinophils (%) (Auto) 0 0-10 % Basophils (%) (Auto) 0 0-10 % Neutrophils # (Auto) 8.8 H 1.8-7.8 X 10^3 Lymphocytes # (Auto) 2.2 1.0-4.0 X 10^3 Monocytes # (Auto) 1.3 H 0.0-1.0 X 10^3 Eosinophils # (Auto) 0.0 0.0-0.3 10^3/uL Basophils # (Auto) 0.0 0.0-0.1 10^3/uL Sodium Level 144 135-145 MMOL/L Potassium Level 3.6 3.6-5.0 MMOL/L Chloride Level 107 98-107 MMOL/L Carbon Dioxide Level 26 21-32 MMOL/L Anion Gap 11 5-14 MMOL/L Blood Urea Nitrogen 17 7-18 MG/DL Creatinine 1.15 0.60-1.30 MG/DL Estimat Glomerular Filtration Rate > 60 BUN/Creatinine Ratio 15 0-20 Glucose Level 130 H 70-105 MG/DL Calcium Level 10.1 8.5-10.1 MG/DL Total Bilirubin 3.4 H 0.1-1.0 MG/DL Aspartate Amino Transf (AST/SGOT) 24 5-34 U/L Alanine Aminotransferase (ALT/SGPT) 36 0-55 U/L Alkaline Phosphatase 65 40-136 U/L Total Protein 8.1 6.4-8.2 GM/DL Albumin 4.9 H 3.2-4.5 GM/DL Lipase 11 8-78 U/L My Orders Orders - LOWELL PATTERSON APRN Cbc With Automated Diff (12/14/16 11:16) Comprehensive Metabolic Panel (12/14/16 11:16) Lipase (12/14/16 11:16) Ua Culture If Indicated (12/14/16 11:16) Saline Lock/Iv-Start (12/14/16 11:16) Ns Iv 1000 Ml (Sodium Chloride 0.9%) (12/14/16 11:30) Prochlorperazine Injection (Compazine In (12/14/16 11:30) Diphenhydramine Injection (Benadryl Inje (12/14/16 11:30) Ondansetron Injection (Zofran Injectio (12/14/16 11:30) Drug Screen Stat (Urine) (12/14/16 11:16) Medications Given in ED Current Medications Medications Dose Ordered Sig/Dustin Route Start Time Stop Time Status Last Admin Dose Admin Diphenhydramine HCl 50 mg ONCE ONCE IVP 12/14/16 11:30 12/14/16 11:31 DC 12/14/16 11:25 50 MG Ondansetron HCl 4 mg ONCE ONCE IVP 12/14/16 11:30 12/14/16 11:31 DC 12/14/16 11:27 4 MG Prochlorperazine Edisylate 10 mg ONCE ONCE IV 12/14/16 11:30 12/14/16 11:31 DC 12/14/16 11:28 10 MG Vital Signs/I&O Vital Sign - Last 12Hours 12/14/16 11:13 Temp 97.3 Pulse 69 Resp 20 B/P (MAP) 117/94 Pulse Ox 97 O2 Delivery Room Air Blood Pressure Mean: 102 Departure Communication Progress Notes 1236-nausea is better and he is able to drink without vomiting. Feels well to go home. Impression Impression: Primary Impression: Cannabinoid hyperemesis syndrome Disposition: HOME, SELF-CARE Condition: Stable Departure-Patient Inst. Decision time for Depature: 12:35 Referrals: NO,LOCAL PHYSICIAN (PCP/Family) Primary Care Physician Patient Instructions: NO INSTRUCTIONS GIVEN Add. Discharge Instructions: 1. Nausea medication as needed 2. Return to ER for any concerns 3. You must stop marijuana use for the symptoms to improve and not be recurrent All discharge instructions reviewed with patient and/or family. Voiced understanding. Scripts Prochlorperazine Maleate (Compazine) 10 Mg Tablet 10 MG PO Q8H Y for NAUSEA/VOMITING-1ST LINE, #14 TAB Prov: LOWELL PATTERSON APRN 12/14/16 LOWELL PATTERSON APRN Dec 14, 2016 11:21
[2016-12-14] MEDS ORDERED: NS IV 1000 ML 1,000 ML IV SCH (11:30)
[2016-12-14] MEDS ORDERED: PROCHLORPERAZINE 10 MG/2ML INJ (COMPAZINE) IV ONE (11:30)
[2016-12-14] MEDS ORDERED: ONDANSETRON 4 MG/2 ML (SDV) Z0FRAN IVP ONE (11:30)
[2016-12-14] MEDS ORDERED: diphenhydrAMINE 50 MG/ML INJ (BENADRYL) IVP ONE (11:30)
[2016-12-14 11:34] LABS: BASOPHILS % (AUTO) 0 % (0-10); EOSINOPHILS % (AUTO) 0 % (0-10); LYMPHOCYTES # (AUTO) 2.2 X 10^3 (1.0-4.0); LYMPHOCYTES % (AUTO) 18 % (12-44); MEAN CORPUSCULAR HEMOGLOBIN 30 PG (25-34); MEAN CORPUSCULAR HGB CONC 35 G/DL (32-36); MEAN CORPUSCULAR VOLUME 87 FL (80-99); MEAN PLATELET VOLUME 9.7 FL (7.4-10.4); MONOCYTES # (AUTO) 1.3 X 10^3 (0.0-1.0); MONOCYTES % (AUTO) 11 % (0-12); NEUTROPHILS # (AUTO) 8.8 X 10^3 (1.8-7.8); NEUTROPHILS % (AUTO) 71 % (42-75); PLATELET COUNT 238 10^3/uL (130-400); RED BLOOD COUNT 5.24 10^6/uL (4.35-5.85); RED CELL DISTRIBUTION WIDTH 12.7 % (10.0-14.5); WHITE BLOOD COUNT 12.3 10^3/uL (4.3-11.0)
[2016-12-14 11:46] LABS: ALANINE AMINOTRANSFERASE 36 U/L (0-55); ALBUMIN 4.9 GM/DL (3.2-4.5); ANION GAP 11 MMOL/L (5-14); ASPARTATE AMINO TRANSFERASE 24 U/L (5-34); BILIRUBIN,TOTAL 3.4 MG/DL (0.1-1.0); BLOOD UREA NITROGEN 17 MG/DL (7-18); BUN/CREATININE RATIO 15 (0-20); CALCIUM 10.1 MG/DL (8.5-10.1); CARBON DIOXIDE 26 MMOL/L (21-32); CHLORIDE 107 MMOL/L (98-107); CREATININE SERUM 1.15 MG/DL (0.60-1.30); GFR ESTIMATED > 60; GLUCOSE 130 MG/DL (70-105); HEMOLYSIS 22 (-100-29); ICTERUS 3.5 (-100-1.9); LIPASE 11 U/L (8-78); LIPEMIA 14 (-100-49); POTASSIUM 3.6 MMOL/L (3.6-5.0); SODIUM 144 MMOL/L (135-145); TOTAL PROTEIN 8.1 GM/DL (6.4-8.2)
[2016-12-14] MEDS ORDERED: PROC-1 PO (12:36)
[2016-12-14 12:40] VITALS: BP 141/88
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
--- OUTSIDE RECORDS SUMMARY | 2016-12-15 19:05 | XMS REPORT ---
Author Author MONALISA LONG Organization [employer] Address Unknown Phone Unavailable Care Team Providers Care Child Therapist Name Role Phone MONALISA LONG CP Unavailable Allergies, Adverse Reactions, Alerts Substance Reaction Event Type N.K.D.A. Info Not Available Non Drug Allergy Problems Problem Type Condition Code Onset Dates Condition Status Assessment Sports physical Z02.5 Active Medications No Known Medications Procedures Procedure Coding System Code Date Office Visit, Est Pt., Level 3 CPT-4 04496 October 20, 2015 Vital Signs Date/Time: October 20, 2015 Temperature 99.1 F Weight 189.8 lbs Height 78 in BMI 21.93 Index Blood Pressure Diastolic 70 mmHg Blood Pressure Systolic 148 mmHg Cardiac Monitoring Heart Rate 60 bpm Results No Known Results Summary Purpose [employer] Submission
== END 2016-12-14 12:40 | disposition home or self-care (01) ==
LOC: EDUNIT# 11:05 → ER 11:09
DX: F12.188 Cannabis abuse with other cannabis-induced disorder (principal); R11.2 Nausea with vomiting, unspecified
CPT/HCPCS: 36415; 80053; 83690; 85025

== ENCOUNTER 2018-01-19 10:42 | Emergency (ER) | payer SELFPAY ==
[~2018-01-19] VITALS: Ht 200.7 cm; Wt 81.6 kg
[2018-01-19 11:07] VITALS: BP 138/85
== END 2018-01-19 12:00 | disposition left against medical advice (07) ==
LOC: EDUNIT# 10:42 → ER 10:44
DX: R11.10 Vomiting, unspecified (principal); R52 Pain, unspecified
CPT/HCPCS: 99281

== ENCOUNTER 2018-01-19 18:17 | Emergency (ER) | payer SELFPAY ==
[~2018-01-19] VITALS: Ht 200.7 cm; Wt 81.6 kg
[2018-01-19] MEDS ORDERED: ONDANSETRON 4 MG/2 ML (SDV) Z0FRAN IVP ONE (18:30)
[2018-01-19] MEDS ORDERED: NS IV 1000 ML 1,000 ML IV SCH (18:30)
[2018-01-19] MEDS ORDERED: diphenhydrAMINE 50 MG/ML INJ (BENADRYL) IVP ONE (18:30)
--- NOTE | 2018-01-19 18:31 | ED Abdominal Pain ---
General Stated Complaint: VOMITING/UNABLE TO EAT OR DRINK Source of Information: Patient Exam Limitations: No Limitations History of Present Illness Date Seen by Provider: Jan 19, 2018 Time Seen by Provider: 18:29 Initial Comments to ER with reports of vomiting, periumbilical abdominal pain and unable to eat or drink since Monday01/17/18. He has a recurrent history of these episodes of nausea vomiting and abdominal pain only relieved by hot showers. These are precipitated by smoking marijuana. I've seen him in the emergency room for this before and educated him on hyperemesis cannabinoids syndrome and the need to discontinue marijuana use most recently in July or August of this year Timing/Duration: 1-2 Days Severity/Quality: Moderate Location: Generalized Abdomen, Periumbilical Radiation: No Radiation Activities at Onset: None Associated Symptoms: Nausea/Vomiting Allergies and Home Medications Allergies Coded Allergies: No Known Drug Allergies (Unverified , 12/14/16) Home Medications Prochlorperazine Maleate 10 Mg Tablet, 10 MG PO Q8H PRN for NAUSEA/VOMITING-1ST LINE Prescribed by: LOWELL PATTERSON on 12/14/16 1236 Patient Home Medication List Home Medication List Reviewed: Yes Review of Systems Constitutional: see HPI EENTM: No Symptoms Reported Respiratory: No Symptoms Reported Cardiovascular: No Symptoms Reported Gastrointestinal: See HPI, Abdominal Pain, Nausea, Vomiting Genitourinary: No Symptoms Reported Musculoskeletal: no symptoms reported Skin: no symptoms reported Psychiatric/Neurological: No Symptoms Reported Endocrine: No Symptoms Reported Past Tmjgglx-Vgfxdk-Gpkyfk Hx Patient Social History Drug of Choice: marijuana 2nd Hand Smoke Exposure: No Recent Foreign Travel: No Contact w/Someone Who Travel: No Recent Hopitalizations: No Seasonal Allergies Seasonal Allergies: No Past Medical History Surgeries: No Respiratory: No Cardiac: No Neurological: No Reproductive Disorders: No Genitourinary: No Gastrointestinal: No Musculoskeletal: No Endocrine: No HEENT: No Cancer: No Psychosocial: No Integumentary: No Blood Disorders: No Adverse Reaction/Blood Tranf: No Family Medical History No Pertinent Family Hx Physical Exam Vital Signs Vital Signs - First Documented 01/19/18 18:24 Temp 98.6 Pulse 115 Resp 16 B/P (MAP) 149/76 (100) Pulse Ox 96 O2 Delivery Room Air Capillary Refill : Height/Weight/BMI Height: 6'7.00" Weight: 180lbs. oz. [id number]; 22.53 BMI Method:Stated General Appearance: WD/WN, no apparent distress HEENT: PERRL/EOMI, normal ENT inspection Neck: non-tender, full range of motion Respiratory: no respiratory distress, no accessory muscle use Cardiovascular: no murmur, tachycardia (120) Gastrointestinal: normal bowel sounds, non tender, soft Extremities: normal range of motion, non-tender Neurologic/Psychiatric: alert, normal mood/affect Skin: normal color, warm/dry Progress/Results/Core Measures Results/Orders Lab Results Laboratory Tests Test 01/19/18 18:27 01/19/18 18:31 Range/Units White Blood Count 13.7 H 4.3-11.0 10^3/uL Red Blood Count 5.08 4.35-5.85 10^6/uL Hemoglobin 15.5 13.3-17.7 G/DL Hematocrit 43 40-54 % Mean Corpuscular Volume 85 80-99 FL Mean Corpuscular Hemoglobin 31 25-34 PG Mean Corpuscular Hemoglobin Concent 36 32-36 G/DL Red Cell Distribution Width 13.2 10.0-14.5 % Platelet Count 285 130-400 10^3/uL Mean Platelet Volume 9.1 7.4-10.4 FL Neutrophils (%) (Auto) 76 H 42-75 % Lymphocytes (%) (Auto) 16 12-44 % Monocytes (%) (Auto) 8 0-12 % Eosinophils (%) (Auto) 0 0-10 % Basophils (%) (Auto) 0 0-10 % Neutrophils # (Auto) 10.4 H 1.8-7.8 X 10^3 Lymphocytes # (Auto) 2.1 1.0-4.0 X 10^3 Monocytes # (Auto) 1.1 H 0.0-1.0 X 10^3 Eosinophils # (Auto) 0.0 0.0-0.3 10^3/uL Basophils # (Auto) 0.0 0.0-0.1 10^3/uL Sodium Level 144 135-145 MMOL/L Potassium Level 4.0 3.6-5.0 MMOL/L Chloride Level 110 H 98-107 MMOL/L Carbon Dioxide Level 23 21-32 MMOL/L Anion Gap 11 5-14 MMOL/L Blood Urea Nitrogen 16 7-18 MG/DL Creatinine 0.89 0.60-1.30 MG/DL Estimat Glomerular Filtration Rate > 60 BUN/Creatinine Ratio 18 Glucose Level 125 H 70-105 MG/DL Calcium Level 10.4 H 8.5-10.1 MG/DL Total Bilirubin 3.4 H 0.1-1.0 MG/DL Aspartate Amino Transf (AST/SGOT) 17 5-34 U/L Alanine Aminotransferase (ALT/SGPT) 18 0-55 U/L Alkaline Phosphatase 57 40-136 U/L Total Protein 7.7 6.4-8.2 GM/DL Albumin 5.0 H 3.2-4.5 GM/DL Lipase 7 L 8-78 U/L Urine Color YELLOW Urine Clarity CLEAR Urine pH 6 5-9 Urine Specific Ruso 1.020 1.016-1.022 Urine Protein 2+ H NEGATIVE Urine Glucose (UA) NEGATIVE NEGATIVE Urine Ketones 4+ H NEGATIVE Urine Nitrite NEGATIVE NEGATIVE Urine Bilirubin NEGATIVE NEGATIVE Urine Urobilinogen 1 NORMAL MG/DL Urine Leukocyte Esterase 1+ H NEGATIVE Urine RBC (Auto) NEGATIVE NEGATIVE Urine RBC NONE /HPF Urine WBC 2-5 /HPF Urine Crystals NONE /LPF Urine Bacteria NONE /HPF Urine Casts NONE /LPF Urine Mucus MODERATE H /LPF Urine Culture Indicated NO Urine Opiates Screen NEGATIVE NEGATIVE Urine Oxycodone Screen NEGATIVE NEGATIVE Urine Methadone Screen NEGATIVE NEGATIVE Urine Propoxyphene Screen NEGATIVE NEGATIVE Urine Barbiturates Screen NEGATIVE NEGATIVE Ur Tricyclic Antidepressants Screen NEGATIVE NEGATIVE Urine Phencyclidine Screen NEGATIVE NEGATIVE Urine Amphetamines Screen NEGATIVE NEGATIVE Urine Methamphetamines Screen NEGATIVE NEGATIVE Urine Benzodiazepines Screen NEGATIVE NEGATIVE Urine Cocaine Screen NEGATIVE NEGATIVE Urine Cannabinoids Screen POSITIVE H NEGATIVE My Orders Orders - LOWELL PATTERSON APRN Cbc With Automated Diff (01/19/18 18:22) Comprehensive Metabolic Panel (01/19/18 18:22) Lipase (01/19/18 18:22) Ua Culture If Indicated (01/19/18 18:22) Drug Screen Stat (Urine) (01/19/18 18:22) Iv Heplock-Insert (Order) (01/19/18 18:22) Ns Iv 1000 Ml (Sodium Chloride 0.9%) (01/19/18 18:30) Diphenhydramine Injection (Benadryl Inje (01/19/18 18:30) Ondansetron Injection (Zofran Injectio (01/19/18 18:30) Haloperidol Injection (Haldol Injectio (01/19/18 18:45) Medications Given in ED Current Medications Medications Dose Ordered Sig/Dustin Route Start Time Stop Time Status Last Admin Dose Admin Diphenhydramine HCl 25 mg ONCE ONCE IVP 01/19/18 18:30 01/19/18 18:31 DC 01/19/18 18:43 25 MG Haloperidol Lactate 3 mg ONCE ONCE IV 01/19/18 18:45 01/19/18 18:46 DC 01/19/18 18:39 3 MG Ondansetron HCl 8 mg ONCE ONCE IVP 01/19/18 18:30 01/19/18 18:31 DC 01/19/18 18:41 8 MG Vital Signs/I&O 01/19/18 18:24 Temp 98.6 Pulse 115 Resp 16 B/P (MAP) 149/76 (100) Pulse Ox 96 O2 Delivery Room Air Departure Communication (Admissions) 1950-nausea and abdominal pain are improved after 1 L of fluids, 25 mg of Benadryl, 8 mg of Zofran and 3 mg of Haldol. Impression Primary Impression: Cannabinoid hyperemesis syndrome Disposition: 01 HOME, SELF-CARE Condition: Stable Departure-Patient Inst. Decision time for Depature: 18:58 Referrals: NO,LOCAL PHYSICIAN (PCP/Family) Primary Care Physician Patient Instructions: Nausea and Vomiting, Adult Add. Discharge Instructions: 1. You must stop the marijuana intake in order to stop having these episodes of recurrent nausea vomiting abdominal pain LOWELL PATTERSON APRN Jan 19, 2018 18:31
[2018-01-19 18:35] LABS: BASOPHILS % (AUTO) 0 % (0-10); EOSINOPHILS % (AUTO) 0 % (0-10); HEMATOCRIT 43 % (40-54); HEMOGLOBIN 15.5 G/DL (13.3-17.7); LYMPHOCYTES # (AUTO) 2.1 X 10^3 (1.0-4.0); LYMPHOCYTES % (AUTO) 16 % (12-44); MEAN CORPUSCULAR HEMOGLOBIN 31 PG (25-34); MEAN CORPUSCULAR HGB CONC 36 G/DL (32-36); MEAN CORPUSCULAR VOLUME 85 FL (80-99); MEAN PLATELET VOLUME 9.1 FL (7.4-10.4); MONOCYTES # (AUTO) 1.1 X 10^3 (0.0-1.0); MONOCYTES % (AUTO) 8 % (0-12); NEUTROPHILS # (AUTO) 10.4 X 10^3 (1.8-7.8); NEUTROPHILS % (AUTO) 76 % (42-75); PLATELET COUNT 285 10^3/uL (130-400); RED BLOOD COUNT 5.08 10^6/uL (4.35-5.85); RED CELL DISTRIBUTION WIDTH 13.2 % (10.0-14.5); WHITE BLOOD COUNT 13.7 10^3/uL (4.3-11.0)
[2018-01-19 18:37] LABS: BILIRUBIN,URINE NEGATIVE (NEGATIVE); CLARITY,URINE CLEAR; COLOR,URINE YELLOW; GLUCOSE, URINE (UA) NEGATIVE (NEGATIVE); KETONES,URINE 4+ (NEGATIVE); LEUKOCYTE ESTERASE ,URINE 1+ (NEGATIVE); NITRITE,URINE NEGATIVE (NEGATIVE); PH,URINE 6 (5-9); PROTEIN,URINE 2+ (NEGATIVE); UROBILINOGEN,URINE 1 MG/DL (NORMAL)
[2018-01-19] MEDS ORDERED: HALOPERIDOL 5 MG/ML (HALDOL) AMP IV ONE (18:45)
[2018-01-19 18:50] LABS: AMPHETAMINE SCREEN, URINE NEGATIVE (NEGATIVE); BARBITURATE SCREEN URINE NEGATIVE (NEGATIVE); BENZODIAZEPINES SCREEN URINE NEGATIVE (NEGATIVE); CANNABINOID SCREEN, URINE POSITIVE (NEGATIVE); COCAINE SCREEN URINE NEGATIVE (NEGATIVE); METHADONE STAT NEGATIVE (NEGATIVE); METHAMPHETAMINE SCREEN URINE S NEGATIVE (NEGATIVE); OPIATE SCREEN URINE NEGATIVE (NEGATIVE); OXYCODONE STAT NEGATIVE (NEGATIVE); PROPOXYPHENE STAT NEGATIVE (NEGATIVE); TRICYCLIC ANTIDEPRESSANTS SCRE NEGATIVE (NEGATIVE)
[2018-01-19 18:54] LABS: ALANINE AMINOTRANSFERASE 18 U/L (0-55); ALKALINE PHOSPHATASE 57 U/L (40-136); BILIRUBIN,TOTAL 3.4 MG/DL (0.1-1.0); BUN/CREATININE RATIO 18; CALCIUM 10.4 MG/DL (8.5-10.1); CARBON DIOXIDE 23 MMOL/L (21-32); CHLORIDE 110 MMOL/L (98-107); CREATININE SERUM 0.89 MG/DL (0.60-1.30); GFR ESTIMATED > 60; GLUCOSE 125 MG/DL (70-105); LIPASE 7 U/L (8-78); SODIUM 144 MMOL/L (135-145); TOTAL PROTEIN 7.7 GM/DL (6.4-8.2)
[2018-01-19 19:56] VITALS: BP 134/75
== END 2018-01-19 19:56 | disposition home or self-care (01) ==
LOC: EDUNIT# 18:17 → ER 18:18
DX: F12.10 Cannabis abuse, uncomplicated (principal); R11.10 Vomiting, unspecified
CPT/HCPCS: 36415; 80053; 80306; 81000; 83690; 85025; 96361; 96374; 96375

== ENCOUNTER 2018-01-22 09:10 | Emergency (ER) | payer SELFPAY ==
[~2018-01-22] VITALS: Ht 200.7 cm; Wt 86.2 kg
[2018-01-22] MEDS ORDERED: NS IV 1000 ML 1,000 ML IV ONE (09:26)
[2018-01-22 09:43] LABS: BASOPHILS % (AUTO) 0 % (0-10); EOSINOPHILS # (AUTO) 0.1 10^3/uL (0.0-0.3); EOSINOPHILS % (AUTO) 1 % (0-10); HEMATOCRIT 40 % (40-54); HEMOGLOBIN 14.8 G/DL (13.3-17.7); LYMPHOCYTES # (AUTO) 1.9 X 10^3 (1.0-4.0); LYMPHOCYTES % (AUTO) 22 % (12-44); MEAN CORPUSCULAR HEMOGLOBIN 31 PG (25-34); MEAN CORPUSCULAR HGB CONC 37 G/DL (32-36); MEAN CORPUSCULAR VOLUME 84 FL (80-99); MEAN PLATELET VOLUME 9.1 FL (7.4-10.4); MONOCYTES # (AUTO) 0.8 X 10^3 (0.0-1.0); MONOCYTES % (AUTO) 9 % (0-12); NEUTROPHILS # (AUTO) 5.9 X 10^3 (1.8-7.8); NEUTROPHILS % (AUTO) 68 % (42-75); PLATELET COUNT 212 10^3/uL (130-400); RED BLOOD COUNT 4.72 10^6/uL (4.35-5.85); RED CELL DISTRIBUTION WIDTH 12.4 % (10.0-14.5); WHITE BLOOD COUNT 8.7 10^3/uL (4.3-11.0)
[2018-01-22 10:02] LABS: ALANINE AMINOTRANSFERASE 17 U/L (0-55); ALBUMIN 4.5 GM/DL (3.2-4.5); ALKALINE PHOSPHATASE 52 U/L (40-136); BILIRUBIN,TOTAL 3.8 MG/DL (0.1-1.0); BUN/CREATININE RATIO 12; CALCIUM 9.9 MG/DL (8.5-10.1); CARBON DIOXIDE 23 MMOL/L (21-32); CHLORIDE 106 MMOL/L (98-107); CREATININE SERUM 0.93 MG/DL (0.60-1.30); GFR ESTIMATED > 60; GLUCOSE 104 MG/DL (70-105); LIPASE 4 U/L (8-78); MAGNESIUM 1.7 MG/DL (1.8-2.4); POTASSIUM 3.5 MMOL/L (3.6-5.0); SODIUM 141 MMOL/L (135-145); TOTAL PROTEIN 7.3 GM/DL (6.4-8.2)
[2018-01-22] MEDS ORDERED: PROC-1 PO (10:44)
[2018-01-22] MEDS ORDERED: diphenhydrAMINE 50 MG/ML INJ (BENADRYL) IVP ONE (10:45)
[2018-01-22] MEDS ORDERED: ONDANSETRON 4 MG/2 ML (SDV) Z0FRAN IVP ONE (10:45)
[2018-01-22] MEDS ORDERED: HALOPERIDOL 5 MG/ML (HALDOL) AMP IV ONE (10:45)
--- NOTE | 2018-01-22 10:45 | ED GI ---
General Chief Complaint: Abdominal/GI Problems Stated Complaint: CAN'T EAT OR DRINK,VOMITING Nursing Triage Note: pt reports being seen on last monday for cannaboid hyperemesis. pt states since then his anxiety, nausea, and vomitng has not improved. unable to eat or drink. denies any use marijuana use since monday. Sepsis Screen: No Definite Risk Source of Information: Patient Exam Limitations: No Limitations History of Present Illness Date Seen by Provider: Jan 22, 2018 Time Seen by Provider: 10:41 Initial Comments to ER with reports of persistent nausea and vomiting. He was seen here on Monday of last week diagnosed with hyperemesis cannabinoids syndrome. He reports that his nausea and vomiting follows marijuana smoking or thing that relieves this is a hot showers he has several of these episodes per year requiring emergency room treatment and evaluation. He was given Benadryl Haldol and fluids and this resolved his symptoms almost completely at the time of discharge. However he went home and began vomiting again. He assures me not use marijuana since then. Reports diffuse abdominal pain, nothing localized. No fevers. Timing/Duration: 3-4 Days Severity/Quality: Moderate Location: Generalized Abdomen Radiation: No Radiation Activities at Onset: None Allergies and Home Medications Allergies Coded Allergies: No Known Drug Allergies (Unverified , 12/14/16) Home Medications Prochlorperazine Maleate 10 Mg Tablet, 10 MG PO Q8H PRN for NAUSEA/VOMITING-1ST LINE Prescribed by: LOWELL PATTERSON on 12/14/16 1236 Prochlorperazine Maleate 10 Mg Tablet, 10 MG PO Q8H PRN for NAUSEA/VOMITING-1ST LINE Prescribed by: LOWELL PATTERSON on 01/22/18 1044 Patient Home Medication List Home Medication List Reviewed: Yes Review of Systems Constitutional: see HPI EENTM: No Symptoms Reported Respiratory: No Symptoms Reported Cardiovascular: No Symptoms Reported Gastrointestinal: See HPI, Abdominal Pain, Nausea, Vomiting Genitourinary: No Symptoms Reported Musculoskeletal: no symptoms reported Skin: no symptoms reported Psychiatric/Neurological: No Symptoms Reported Endocrine: No Symptoms Reported Past Jwqltyp-Pixpom-Gpkztw Hx Patient Social History Drug of Choice: marijuana 2nd Hand Smoke Exposure: Yes Recent Foreign Travel: No Contact w/Someone Who Travel: No Recent Infectious Disease Expo: No Recent Hopitalizations: No Seasonal Allergies Seasonal Allergies: No Past Medical History Surgeries: No Respiratory: No Cardiac: No Neurological: No Reproductive Disorders: No Genitourinary: No Gastrointestinal: No Musculoskeletal: No Endocrine: No HEENT: No Cancer: No Psychosocial: No Integumentary: No Blood Disorders: No Adverse Reaction/Blood Tranf: No Family Medical History No Pertinent Family Hx Physical Exam Vital Signs Vital Signs - First Documented 01/22/18 09:26 Pulse 71 Resp 16 B/P (MAP) 137/93 (108) Pulse Ox 100 O2 Delivery Room Air Capillary Refill : Less Than 3 Seconds Height/Weight/BMI Height: 6'7.00" Weight: 190lbs. oz. 86.674648ev; 22.53 BMI Method:Stated General Appearance: WD/WN, no apparent distress HEENT: PERRL/EOMI, normal ENT inspection Neck: non-tender, full range of motion Respiratory: no respiratory distress, no accessory muscle use Cardiovascular: regular rate, rhythm, no murmur Gastrointestinal: normal bowel sounds, non tender, soft Extremities: normal range of motion, non-tender Neurologic/Psychiatric: alert, normal mood/affect, oriented x 3 Skin: normal color, warm/dry Progress/Results/Core Measures Results/Orders Lab Results Laboratory Tests Test 01/22/18 09:34 Range/Units White Blood Count 8.7 4.3-11.0 10^3/uL Red Blood Count 4.72 4.35-5.85 10^6/uL Hemoglobin 14.8 13.3-17.7 G/DL Hematocrit 40 40-54 % Mean Corpuscular Volume 84 80-99 FL Mean Corpuscular Hemoglobin 31 25-34 PG Mean Corpuscular Hemoglobin Concent 37 H 32-36 G/DL Red Cell Distribution Width 12.4 10.0-14.5 % Platelet Count 212 130-400 10^3/uL Mean Platelet Volume 9.1 7.4-10.4 FL Neutrophils (%) (Auto) 68 42-75 % Lymphocytes (%) (Auto) 22 12-44 % Monocytes (%) (Auto) 9 0-12 % Eosinophils (%) (Auto) 1 0-10 % Basophils (%) (Auto) 0 0-10 % Neutrophils # (Auto) 5.9 1.8-7.8 X 10^3 Lymphocytes # (Auto) 1.9 1.0-4.0 X 10^3 Monocytes # (Auto) 0.8 0.0-1.0 X 10^3 Eosinophils # (Auto) 0.1 0.0-0.3 10^3/uL Basophils # (Auto) 0.0 0.0-0.1 10^3/uL Sodium Level 141 135-145 MMOL/L Potassium Level 3.5 L 3.6-5.0 MMOL/L Chloride Level 106 98-107 MMOL/L Carbon Dioxide Level 23 21-32 MMOL/L Anion Gap 12 5-14 MMOL/L Blood Urea Nitrogen 11 7-18 MG/DL Creatinine 0.93 0.60-1.30 MG/DL Estimat Glomerular Filtration Rate > 60 BUN/Creatinine Ratio 12 Glucose Level 104 70-105 MG/DL Calcium Level 9.9 8.5-10.1 MG/DL Magnesium Level 1.7 L 1.8-2.4 MG/DL Total Bilirubin 3.8 H 0.1-1.0 MG/DL Aspartate Amino Transf (AST/SGOT) 17 5-34 U/L Alanine Aminotransferase (ALT/SGPT) 17 0-55 U/L Alkaline Phosphatase 52 40-136 U/L Total Protein 7.3 6.4-8.2 GM/DL Albumin 4.5 3.2-4.5 GM/DL Lipase 4 L 8-78 U/L My Orders Orders - LOWELL PATTERSON APRN Diphenhydramine Injection (Benadryl Inje (01/22/18 10:45) Ondansetron Injection (Zofran Injectio (01/22/18 10:45) Haloperidol Injection (Haldol Injectio (01/22/18 10:45) Drug Screen Stat (Urine) (01/22/18 10:35) Ns Iv 1000 Ml (Sodium Chloride 0.9%) (01/22/18 11:00) Medications Given in ED Current Medications Medications Dose Ordered Sig/Dustin Route Start Time Stop Time Status Last Admin Dose Admin Diphenhydramine HCl 25 mg ONCE ONCE IVP 01/22/18 10:45 01/22/18 10:46 DC 01/22/18 10:43 25 MG Haloperidol Lactate 5 mg ONCE ONCE IV 01/22/18 10:45 01/22/18 10:46 DC 01/22/18 10:45 5 MG Ondansetron HCl 8 mg ONCE ONCE IVP 01/22/18 10:45 01/22/18 10:46 DC 01/22/18 10:40 8 MG Sodium Chloride 1,000 ml @ 0 mls/hr Q0M ONCE IV 01/22/18 09:26 01/22/18 09:27 DC 01/22/18 09:53 0 MLS/HR Vital Signs/I&O 01/22/18 09:26 Pulse 71 Resp 16 B/P (MAP) 137/93 (108) Pulse Ox 100 O2 Delivery Room Air Blood Pressure Mean: 108 Departure Communication (Admissions) 1114-patient states is ready to home. He has not received his fluids normal.he is requesting to leave at this time. States his nausea is better "im just uncomfortable I just need to go home" Impression Primary Impression: Cannabinoid hyperemesis syndrome Disposition: HOME, SELF-CARE Condition: Stable Departure-Patient Inst. Decision time for Depature: 10:43 Referrals: NO,LOCAL PHYSICIAN (PCP/Family) Primary Care Physician Patient Instructions: Nausea and Vomiting, Adult Add. Discharge Instructions: All discharge instructions reviewed with patient and/or family. Voiced understanding. Scripts Prochlorperazine Maleate (Compazine) 10 Mg Tablet 10 MG PO Q8H PRN for NAUSEA/VOMITING-1ST LINE, #14 TAB Prov: LOWELL PATTERSON APRN 01/22/18 Work/School Note: Work Release Form Date Seen in the Emergency Department: Jan 22, 2018 Return to Work: Jan 24, 2018 LOWELL PATTERSON APRN Jan 22, 2018 10:45
[2018-01-22] MEDS ORDERED: NS IV 1000 ML 1,000 ML IV SCH (11:00)
[2018-01-22 11:21] VITALS: BP 121/72
== END 2018-01-22 11:21 | disposition home or self-care (01) ==
LOC: EDUNIT# 09:10 → ER 09:11
DX: R11.2 Nausea with vomiting, unspecified (principal); F12.10 Cannabis abuse, uncomplicated; Z77.22 Contact with and (suspected) exposure to environmental tobacco smoke (acute) (chronic)
CPT/HCPCS: 36415; 80053; 83690; 83735; 85025; 96361; 96374; 96375

== ENCOUNTER 2018-01-29 11:54 | Emergency (ER) | payer SELFPAY ==
[~2018-01-29] VITALS: Ht 200.7 cm; Wt 83.9 kg
[2018-01-29 12:17] VITALS: BP 124/96
--- NOTE | 2018-01-29 12:28 | ED GI ---
General Stated Complaint: VOMITING Source of Information: Patient Exam Limitations: No Limitations History of Present Illness Date Seen by Provider: Jan 29, 2018 Time Seen by Provider: 12:20 Initial Comments Patient presents to ER by private conveyance chief complaint of nausea for the past 12 days first aid and he has not eaten or drank the past 12 days. He then states he has been drinking and eating a little bit. He states he was diagnosed with cannabis hyperemesis syndrome and given some medications to help with his nausea week ago but he said the nausea came back immediately. He's been having nausea entire time and he today was the first day he felt better so he decided to come to the ER. Patient states she was not given any nausea medicines to go home with. Review of notes demonstrates the patient did leave prior to receiving a full workup and Compazine was prescribed. Patient is adamantly declining any laboratory workup sinuses though it usually presents and he doesn' t think anything of your own with his blood despite having claimed to vomited for the last 12 days. Allergies and Home Medications Allergies Coded Allergies: No Known Drug Allergies (Unverified , 12/14/16) Home Medications Prochlorperazine Maleate 10 Mg Tablet, 10 MG PO Q8H PRN for NAUSEA/VOMITING-1ST LINE Prescribed by: LOWELL PATTERSON on 12/14/16 1236 Prochlorperazine Maleate 10 Mg Tablet, 10 MG PO Q8H PRN for NAUSEA/VOMITING-1ST LINE Prescribed by: LOWELL PATTERSON on 01/22/18 1044 Prochlorperazine Maleate 10 Mg Tablet, 10 MG PO Q8H PRN for NAUSEA/VOMITING-1ST LINE Prescribed by: CLAUDIA DEL RIO on 01/29/18 1229 Patient Home Medication List Home Medication List Reviewed: Yes Review of Systems Constitutional: No chills, No diaphoresis EENTM: No Blurred Vision, No Double Vision Respiratory: Denies Cough, Denies Shortness of Air Cardiovascular: Denies Chest Pain, Denies Lightheadedness Gastrointestinal: Denies Abdominal Pain; Nausea, Poor Appetite; Denies Poor Fluid Intake, Denies Rectal Bleeding; Vomiting Genitourinary: Denies Burning, Denies Discharge Past Bfoeaqj-Jevumm-Rojlzz Hx Patient Social History Alcohol Use: Denies Use Recreational Drug Use: Yes Drug of Choice: marijuana Smoking Status: Never a Smoker 2nd Hand Smoke Exposure: Yes Recent Foreign Travel: No Contact w/Someone Who Travel: No Recent Hopitalizations: No Seasonal Allergies Seasonal Allergies: No Past Medical History Surgeries: No Respiratory: No Cardiac: No Neurological: No Reproductive Disorders: No Genitourinary: No Gastrointestinal: No Musculoskeletal: No Endocrine: No HEENT: No Cancer: No Psychosocial: No Integumentary: No Blood Disorders: No Adverse Reaction/Blood Tranf: No Family Medical History No Pertinent Family Hx Physical Exam Vital Signs Capillary Refill : Height/Weight/BMI Height: 6'7.00" Weight: 190lbs. oz. 86.026037ml; 22.53 BMI Method:Stated General Appearance: WD/WN, no apparent distress HEENT: PERRL/EOMI, normal ENT inspection, pharynx normal Neck: full range of motion, normal inspection Respiratory: no respiratory distress, no accessory muscle use Cardiovascular: normal peripheral pulses, regular rate, rhythm Neurologic/Psychiatric: alert, normal mood/affect, oriented x 3 Progress/Results/Core Measures Results/Orders My Orders Orders - CLAUDIA DEL RIO Haloperidol Injection (Haldol Injectio (01/29/18 12:30) Diphenhydramine Injection (Benadryl Inje (01/29/18 12:30) Prochlorperazine Injection (Compazine In (01/29/18 12:30) Progress Progress Note : Time: 12:23 Progress Note Counseled the patient that this is a chronic problem that should be treated outpatient. We have strongly encouraged him to stop using cannabis. 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 We'll use a very low-dose Haldol Benadryl and Compazine send him home with some by mouth Compazine with instructions to follow-up with her PCP. After reviewing the medical records patient is been in here several times and described as hyperemesis secondary to cannabis use disorder and given Haldol multiple times. It is not guillen to continue giving Tylenol without follow-up or management for potential EPS symptoms, dystonia, etc. Departure Impression Primary Impression: Cannabinoid hyperemesis syndrome Disposition: 01 HOME, SELF-CARE Condition: Stable Departure-Patient Inst. Decision time for Depature: 12:45 Referrals: AGNES BERMUDEZ,LOCAL PHYSICIAN (PCP) Primary Care Physician Patient Instructions: Marijuana Use and Addiction (DC) Add. Discharge Instructions: For continued management of your cannabis hyperemesis syndrome you should establish care with a primary care doctor. If you're looking for help with addiction treatment the [facility] referenced above has an outpatient drug and alcohol addiction treatment program. It is unsafe to continue using these medications residential every week without any kind of follow -up for management of possible adverse effects. If you have chest pain, shortness of breath, fevers or other worrisome symptoms you should return to the ER otherwise you should attempt to present to the primary care provider or urgent care for management of your chronic non- emergent problems. I cannot stress enough that you should stop using marijuana. Drink plenty of fluids especially sports drinks such as Gatorade or Powerade. Avoid caffeine. Scripts Prochlorperazine Maleate (Compazine) 10 Mg Tablet 10 MG PO Q8H PRN for NAUSEA/VOMITING-1ST LINE for 14 Days, #10 TAB 0 Refills Prov: CLAUDIA DEL RIO 01/29/18 Work/School Note: Work Release Form Date Seen in the Emergency Department: Jan 29, 2018 Return to Work: Jan 30, 2018 Restrictions: No Restrictions CLAUDIA DEL RIO Jan 29, 2018 12:28
[2018-01-29] MEDS ORDERED: PROC-1 PO (12:29)
[2018-01-29] MEDS ORDERED: diphenhydrAMINE 50 MG/ML INJ (BENADRYL) IVP ONE (12:30)
[2018-01-29] MEDS ORDERED: PROCHLORPERAZINE 10 MG/2ML INJ (COMPAZINE) IV ONE (12:30)
[2018-01-29] MEDS ORDERED: HALOPERIDOL 5 MG/ML (HALDOL) AMP IV ONE (12:30)
== END 2018-01-29 13:13 | disposition home or self-care (01) ==
LOC: EDUNIT# 11:54 → ER 11:57
DX: F12.188 Cannabis abuse with other cannabis-induced disorder (principal); R11.2 Nausea with vomiting, unspecified; Z77.22 Contact with and (suspected) exposure to environmental tobacco smoke (acute) (chronic)
CPT/HCPCS: 96374; 96375

== ENCOUNTER 2018-06-06 23:04 | Emergency (ER) | payer SELFPAY ==
[~2018-06-06] VITALS: Ht 200.7 cm; Wt 86.2 kg
[~2018-06-06 23:04] MED LIST changes: -BENZ-13 PO; +BENZ100C18 PO; -PROC5TAB; +PROC5TAB9
[2018-06-06] MEDS ORDERED: NS IV 1000 ML 1,000 ML IV ONE (23:30)
[2018-06-06] MEDS ORDERED: ONDANSETRON 4 MG/2 ML (SDV) Z0FRAN IVP ONE (23:30)
[2018-06-07 00:10] LABS: BASOPHILS % (AUTO) 0 % (0-10); EOSINOPHILS % (AUTO) 0 % (0-10); HEMATOCRIT 41 % (40-54); HEMOGLOBIN 15.3 G/DL (13.3-17.7); LYMPHOCYTES # (AUTO) 0.8 X 10^3 (1.0-4.0); LYMPHOCYTES % (AUTO) 5 % (12-44); MEAN CORPUSCULAR HEMOGLOBIN 31 PG (25-34); MEAN CORPUSCULAR HGB CONC 37 G/DL (32-36); MEAN CORPUSCULAR VOLUME 84 FL (80-99); MONOCYTES # (AUTO) 0.6 X 10^3 (0.0-1.0); MONOCYTES % (AUTO) 4 % (0-12); NEUTROPHILS # (AUTO) 15.8 X 10^3 (1.8-7.8); NEUTROPHILS % (AUTO) 92 % (42-75); PLATELET COUNT 251 10^3/uL (130-400); RED BLOOD COUNT 4.93 10^6/uL (4.35-5.85); RED CELL DISTRIBUTION WIDTH 12.8 % (10.0-14.5); WHITE BLOOD COUNT 17.2 10^3/uL (4.3-11.0)
[2018-06-07] MEDS ORDERED: RX-ONDANSETRON 4 MG ODT (ZOFRAN) PPK #4 SL STA (00:21)
[2018-06-07 00:25] LABS: BAND NEUTROPHILS 0 %; BASOPHILS % (MANUAL) 0 %; EOSINOPHILS % (MANUAL) 0 %; LYMPHOCYTES % (MANUAL) 1 %; MONOCYTES % (MANUAL) 2 %; NEUTROPHILS % (MANUAL) 97 %; RBC MORPH NORMAL
[2018-06-07 00:29] LABS: ALANINE AMINOTRANSFERASE 27 U/L (0-55); ALBUMIN 5.1 GM/DL (3.2-4.5); ALKALINE PHOSPHATASE 61 U/L (40-136); BILIRUBIN,TOTAL 2.9 MG/DL (0.1-1.0); BUN/CREATININE RATIO 14; CALCIUM 10.3 MG/DL (8.5-10.1); CARBON DIOXIDE 19 MMOL/L (21-32); CHLORIDE 106 MMOL/L (98-107); CREATININE SERUM 1.07 MG/DL (0.60-1.30); GFR ESTIMATED > 60; GLUCOSE 166 MG/DL (70-105); POTASSIUM 3.5 MMOL/L (3.6-5.0); SODIUM 143 MMOL/L (135-145); TOTAL PROTEIN 8.1 GM/DL (6.4-8.2)
[2018-06-07] MEDS ORDERED: diphenhydrAMINE 25 MG TAB (BENADRYL) PO ONE (00:30)
[2018-06-07] MEDS ORDERED: PROMETHAZINE INJ 25 MG/ML (PHENERGAN) AMP IVP ONE (00:45)
[2018-06-07] MEDS ORDERED: LACTATED RINGERS 1,000 ML IV ONE (01:29)
--- NOTE | 2018-06-07 02:35 | ED GI ---
General Chief Complaint: Abdominal/GI Problems Stated Complaint: N,V Nursing Triage Note: Patient advises he has been vomiting since 1300 today. He states he smoked weed yesterday and feels that his nausea and vomitting may be related to smoking. Sepsis Screen: No Definite Risk Source of Information: Patient Exam Limitations: No Limitations History of Present Illness Date Seen by Provider: Jun 06, 2018 Time Seen by Provider: 23:30 Initial Comments This 22-year-old young man presents to the emergency room with nausea and vomiting that started around 13:00. He believes this is secondary to using marijuana yesterday. He has had prior episodes of cannabis hyperemesis syndrome. He denies any other symptoms. He has no abdominal pain. Temperature was mildly elevated at 100.0. One reason patient decided to present to the ER tonight is that he could not sleep. Allergies and Home Medications Allergies Coded Allergies: No Known Drug Allergies (Unverified , 06/07/18) Home Medications Prochlorperazine Maleate 10 Mg Tablet, 10 MG PO Q8H PRN for NAUSEA/VOMITING-1ST LINE Prescribed by: LOWELL PATTERSON on 12/14/16 1236 Prochlorperazine Maleate 10 Mg Tablet, 10 MG PO Q8H PRN for NAUSEA/VOMITING-1ST LINE Prescribed by: LOWELL PATTERSON on 01/22/18 1044 Prochlorperazine Maleate 10 Mg Tablet, 10 MG PO Q8H PRN for NAUSEA/VOMITING-1ST LINE Prescribed by: CLAUDIA DEL RIO on 01/29/18 1229 Patient Home Medication List Home Medication List Reviewed: Yes Review of Systems Review of Systems Constitutional: see HPI EENTM: No Symptoms Reported Respiratory: No Symptoms Reported Cardiovascular: No Symptoms Reported Gastrointestinal: See HPI Genitourinary: No Symptoms Reported Musculoskeletal: no symptoms reported Skin: no symptoms reported Psychiatric/Neurological: No Symptoms Reported Endocrine: No Symptoms Reported Past Okomuyz-Jmlrrh-Avjazf Hx Patient Social History Alcohol Use: Denies Use Recreational Drug Use: Yes Drug of Choice: MARIJUANA 2nd Hand Smoke Exposure: Yes Recent Foreign Travel: No Contact w/Someone Who Travel: No Recent Infectious Disease Expo: No Recent Hopitalizations: No Seasonal Allergies Seasonal Allergies: No Past Medical History Surgeries: No Respiratory: No Cardiac: No Neurological: No Reproductive Disorders: No Genitourinary: No Gastrointestinal: Yes (Cannabis hyperemesis syndrome) Musculoskeletal: No Endocrine: No HEENT: No Cancer: No Psychosocial: Yes Anxiety Integumentary: No Blood Disorders: No Adverse Reaction/Blood Tranf: No Family Medical History No Pertinent Family Hx Physical Exam Vital Signs Vital Signs - First Documented 06/06/18 23:21 Temp 100.0 Pulse 81 Resp 14 B/P (MAP) 156/57 (90) Pulse Ox 97 O2 Delivery Room Air Capillary Refill : Less Than 3 Seconds Height/Weight/BMI Height: 6'7.00" Weight: 190lbs. oz. [id number]; 22.53 BMI Method:Stated General Appearance: WD/WN, no apparent distress HEENT: normal ENT inspection, pharynx normal Neck: normal inspection Respiratory: lungs clear, normal breath sounds, no respiratory distress, no accessory muscle use Cardiovascular: regular rate, rhythm, no edema, no murmur Gastrointestinal: normal bowel sounds, non tender, soft Extremities: normal inspection, no pedal edema Back: normal inspection Neurologic/Psychiatric: drum handler II-XII nml as tested, no motor/sensory deficits, alert, normal mood/affect, oriented x 3 Skin: normal color, warm/dry Progress/Results/Core Measures Results/Orders Lab Results Laboratory Tests Test 06/06/18 23:55 06/07/18 00:32 Range/Units White Blood Count 17.2 H 4.3-11.0 10^3/uL Red Blood Count 4.93 4.35-5.85 10^6/uL Hemoglobin 15.3 13.3-17.7 G/DL Hematocrit 41 40-54 % Mean Corpuscular Volume 84 80-99 FL Mean Corpuscular Hemoglobin 31 25-34 PG Mean Corpuscular Hemoglobin Concent 37 H 32-36 G/DL Red Cell Distribution Width 12.8 10.0-14.5 % Platelet Count 251 130-400 10^3/uL Mean Platelet Volume 9.0 7.4-10.4 FL Neutrophils (%) (Auto) 92 H 42-75 % Lymphocytes (%) (Auto) 5 L 12-44 % Monocytes (%) (Auto) 4 0-12 % Eosinophils (%) (Auto) 0 0-10 % Basophils (%) (Auto) 0 0-10 % Neutrophils # (Auto) 15.8 H 1.8-7.8 X 10^3 Lymphocytes # (Auto) 0.8 L 1.0-4.0 X 10^3 Monocytes # (Auto) 0.6 0.0-1.0 X 10^3 Eosinophils # (Auto) 0.0 0.0-0.3 10^3/uL Basophils # (Auto) 0.0 0.0-0.1 10^3/uL Neutrophils % (Manual) 97 % Lymphocytes % (Manual) 1 % Monocytes % (Manual) 2 % Eosinophils % (Manual) 0 % Basophils % (Manual) 0 % Band Neutrophils 0 % Blood Morphology Comment NORMAL Sodium Level 143 135-145 MMOL/L Potassium Level 3.5 L 3.6-5.0 MMOL/L Chloride Level 106 98-107 MMOL/L Carbon Dioxide Level 19 L 21-32 MMOL/L Anion Gap 18 H 5-14 MMOL/L Blood Urea Nitrogen 15 7-18 MG/DL Creatinine 1.07 0.60-1.30 MG/DL Estimat Glomerular Filtration Rate > 60 BUN/Creatinine Ratio 14 Glucose Level 166 H 70-105 MG/DL Calcium Level 10.3 H 8.5-10.1 MG/DL Corrected Calcium 8.5-10.1 MG/DL Total Bilirubin 2.9 H 0.1-1.0 MG/DL Aspartate Amino Transf (AST/SGOT) 23 5-34 U/L Alanine Aminotransferase (ALT/SGPT) 27 0-55 U/L Alkaline Phosphatase 61 40-136 U/L Total Protein 8.1 6.4-8.2 GM/DL Albumin 5.1 H 3.2-4.5 GM/DL Glucometer 142 H 70-110 MG/DL My Orders Orders - FAITH LUCIO MD Cbc With Automated Diff (06/06/18 23:30) Comprehensive Metabolic Panel (06/06/18 23:30) Saline Lock/Iv-Start (06/06/18 23:30) Ns Iv 1000 Ml (Sodium Chloride 0.9%) (06/06/18 23:30) Ondansetron Injection (Zofran Injectio (06/06/18 23:30) Manual Differential (06/06/18 23:55) Diphenhydramine Tablet (Benadryl Tablet) (06/07/18 00:30) Rx-Ondansetron Po (Rx-Zofran Po) (06/07/18 00:21) Promethazine Injection (Phenergan Injec (06/07/18 00:45) Lactated Ringers (Lr 1000 Ml Iv Solution (06/07/18 01:29) Medications Given in ED Vital Signs/I&O 06/06/18 06/07/18 23:21 02:37 Temp 100.0 Pulse 81 76 Resp 14 14 B/P (MAP) 156/57 (90) 138/64 (88) Pulse Ox 97 98 O2 Delivery Room Air Room Air Blood Pressure Mean: 90 Progress Progress Note : Progress Note Patient was initially treated with Zofran. IV fluids were initiated. He received a total of 2 L of IV fluid. He complained of difficulty sleeping. Benadryl was given to help him sleep. However, he vomited immediately after taking the Benadryl. He was then treated with Phenergan. He was then able to fall sleep and rest while his IV fluids finished. It was noted that patient had a mild elevation in bilirubin and WBC. This was felt to be secondary to the persistent vomiting throughout the day. Patient had no abdominal pain or tenderness on exam. He was discharged home in improved condition. Departure Impression Primary Impression: Cannabinoid hyperemesis syndrome Disposition: 01 HOME, SELF-CARE Condition: Improved Departure-Patient Inst. Decision time for Depature: 02:25 Referrals: NO,LOCAL PHYSICIAN (PCP/Family) Primary Care Physician Patient Instructions: Marijuana Use and Addiction Add. Discharge Instructions: Start with a clear liquid diet and gradually advance your diet with small quantities of bland food as tolerated. Dissolve Zofran (ondansetron) under the tongue every 4 hours as needed for nausea and vomiting. Avoid use of cannabis products in the future. Return to care if symptoms worsen. All discharge instructions reviewed with patient and/or family. Voiced understanding. FAITH LUCIO MD Jun 07, 2018 02:35
[2018-06-07 02:37] VITALS: BP 138/64
== END 2018-06-07 02:47 | disposition home or self-care (01) ==
LOC: EDUNIT# 23:04 → ER 23:06
DX: F12.188 Cannabis abuse with other cannabis-induced disorder (principal); R11.2 Nausea with vomiting, unspecified; F41.9 Anxiety disorder, unspecified; Z77.22 Contact with and (suspected) exposure to environmental tobacco smoke (acute) (chronic)
CPT/HCPCS: 36415; 80053; 82962; 85007; 85027; 96361; 96365; 96375

== ENCOUNTER 2018-08-21 08:41 | Emergency (ER) | payer SELFPAY ==
[~2018-08-21] VITALS: Ht 200.7 cm; Wt 86.2 kg
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
[2018-08-21] MEDS ORDERED: NS IV 1000 ML 1,000 ML IV STA (08:56)
[2018-08-21] MEDS ORDERED: FAMOTIDINE 20MG/2ML IV (PEPCID) IV STA (08:56)
[2018-08-21] MEDS ORDERED: ONDANSETRON 4 MG/2 ML (SDV) Z0FRAN IVP ONE (09:00)
--- NOTE | 2018-08-21 09:03 | ED GI ---
General Chief Complaint: Abdominal/GI Problems Stated Complaint: VOMITING;DEHYDRATED Nursing Triage Note: AMB TO ROOM REPORTS HAS BEEN VOMITNG SINCE MONDAY FROM SMOKING MARIJUANA HAS HAS BEEN SEEN FOR THIS IN PAST. Sepsis Screen: No Definite Risk Source of Information: Patient Exam Limitations: No Limitations History of Present Illness Date Seen by Provider: Aug 21, 2018 Time Seen by Provider: 08:48 Initial Comments Here with report of vomiting for the last 3-4 days as well as some diarrhea. Feels like he is dehydrated. Does have some all over muscle aches. States that he's had this several times related to cannabis use. Denies fevers or upper respiratory symptoms. No report of blood in vomit or stool. Timing/Duration: 3-4 Days Severity/Quality: Moderate, Cramping Location: Generalized Abdomen Radiation: No Radiation Activities at Onset: Other (marijuana use) Modifying Factors: Worsens With Eating; Improves With Vomiting Associated Symptoms: No Back Pain, No Chest Pain, No Fever/Chills; Fatigue, Nausea/Vomiting; No Shortness of Air; Weakness Allergies and Home Medications Allergies Coded Allergies: No Known Drug Allergies (Unverified , 06/07/18) Home Medications Prochlorperazine Maleate 10 Mg Tablet, 10 MG PO Q8H PRN for NAUSEA/VOMITING-1ST LINE Prescribed by: LOWELL PATTERSON on 12/14/16 1236 Prochlorperazine Maleate 10 Mg Tablet, 10 MG PO Q8H PRN for NAUSEA/VOMITING-1ST LINE Prescribed by: LOWELL PATTERSON on 01/22/18 1044 Prochlorperazine Maleate 10 Mg Tablet, 10 MG PO Q8H PRN for NAUSEA/VOMITING-1ST LINE Prescribed by: CLAUDIA DEL RIO on 01/29/18 1229 Review of Systems Review of Systems Constitutional: see HPI, chills; No fever EENTM: No Symptoms Reported Respiratory: No Symptoms Reported Cardiovascular: Denies Chest Pain, Denies Edema Gastrointestinal: See HPI, Abdominal Pain, Diarrhea, Nausea, Vomiting Genitourinary: No Symptoms Reported Musculoskeletal: see HPI; No back pain; muscle pain Skin: no symptoms reported All Other Systems Reviewed Negative Unless Noted: Yes Past Rekfphl-Lenqnq-Jlrcdw Hx Past Med/Social Hx: Reviewed Nursing Past Med/Soc Hx Patient Social History Alcohol Use: Denies Use Recreational Drug Use: Yes Drug of Choice: MARIJUANA 2nd Hand Smoke Exposure: Yes Recent Foreign Travel: No Contact w/Someone Who Travel: No Recent Infectious Disease Expo: No Recent Hopitalizations: No Seasonal Allergies Seasonal Allergies: No Past Medical History Surgeries: No Respiratory: No Cardiac: No Neurological: No Reproductive Disorders: No Genitourinary: No Gastrointestinal: Yes (Cannabis hyperemesis syndrome) Musculoskeletal: No Endocrine: No HEENT: No Cancer: No Psychosocial: Yes Anxiety Integumentary: No Blood Disorders: No Adverse Reaction/Blood Tranf: No Family Medical History Reviewed Nursing Family Hx No Pertinent Family Hx Physical Exam Vital Signs Vital Signs - First Documented 08/21/18 08:51 Temp 97.3 Pulse 66 Resp 18 B/P (MAP) 154/96 (115) Pulse Ox 98 O2 Delivery Room Air Capillary Refill : Less Than 3 Seconds Height/Weight/BMI Height: 6'7.00" Weight: 190lbs. oz. [id number]; 22.53 BMI Method:Stated General Appearance: WD/WN, no apparent distress HEENT: PERRL/EOMI, pharynx normal Neck: full range of motion, supple Respiratory: lungs clear, normal breath sounds Cardiovascular: regular rate, rhythm, no murmur Gastrointestinal: non tender, soft Extremities: non-tender, normal inspection Back: normal inspection, no CVA tenderness, no vertebral tenderness Neurologic/Psychiatric: no motor/sensory deficits, alert Skin: normal color, warm/dry Progress/Results/Core Measures Results/Orders Lab Results Laboratory Tests Test 08/21/18 09:00 08/21/18 09:51 Range/Units White Blood Count 8.7 4.3-11.0 10^3/uL Red Blood Count 5.86 H 4.35-5.85 10^6/uL Hemoglobin 17.6 13.3-17.7 G/DL Hematocrit 50 40-54 % Mean Corpuscular Volume 85 80-99 FL Mean Corpuscular Hemoglobin 30 25-34 PG Mean Corpuscular Hemoglobin Concent 35 32-36 G/DL Red Cell Distribution Width 13.3 10.0-14.5 % Platelet Count 294 130-400 10^3/uL Mean Platelet Volume 9.1 7.4-10.4 FL Neutrophils (%) (Auto) 68 42-75 % Lymphocytes (%) (Auto) 21 12-44 % Monocytes (%) (Auto) 10 0-12 % Eosinophils (%) (Auto) 0 0-10 % Basophils (%) (Auto) 0 0-10 % Neutrophils # (Auto) 6.0 1.8-7.8 X 10^3 Lymphocytes # (Auto) 1.9 1.0-4.0 X 10^3 Monocytes # (Auto) 0.9 0.0-1.0 X 10^3 Eosinophils # (Auto) 0.0 0.0-0.3 10^3/uL Basophils # (Auto) 0.0 0.0-0.1 10^3/uL Sodium Level 142 135-145 MMOL/L Potassium Level 3.6 3.6-5.0 MMOL/L Chloride Level 102 98-107 MMOL/L Carbon Dioxide Level 27 21-32 MMOL/L Anion Gap 13 5-14 MMOL/L Blood Urea Nitrogen 13 7-18 MG/DL Creatinine 1.11 0.60-1.30 MG/DL Estimat Glomerular Filtration Rate > 60 BUN/Creatinine Ratio 12 Glucose Level 113 H 70-105 MG/DL Calcium Level 11.2 H 8.5-10.1 MG/DL Corrected Calcium 8.5-10.1 MG/DL Total Bilirubin 3.6 H 0.1-1.0 MG/DL Aspartate Amino Transf (AST/SGOT) 16 5-34 U/L Alanine Aminotransferase (ALT/SGPT) 20 0-55 U/L Alkaline Phosphatase 64 40-136 U/L Total Protein 9.1 H 6.4-8.2 GM/DL Albumin 5.7 H 3.2-4.5 GM/DL Urine Color JESS H Urine Clarity CLEAR Urine pH 6 5-9 Urine Specific [place] 1.020 1.016-1.022 Urine Protein 2+ H NEGATIVE Urine Glucose (UA) NEGATIVE NEGATIVE Urine Ketones 3+ H NEGATIVE Urine Nitrite NEGATIVE NEGATIVE Urine Bilirubin NEGATIVE NEGATIVE Urine Urobilinogen 8 H NORMAL MG/DL Urine Leukocyte Esterase 1+ H NEGATIVE Urine RBC (Auto) NEGATIVE NEGATIVE Urine RBC NONE /HPF Urine WBC 5-10 H /HPF Urine Squamous Epithelial Cells RARE /HPF Urine Crystals NONE /LPF Urine Bacteria FEW H /HPF Urine Casts NONE /LPF Urine Mucus MODERATE H /LPF Urine Culture Indicated YES My Orders Orders - GILMER ANDRADE MD Cbc With Automated Diff (08/21/18 08:56) Comprehensive Metabolic Panel (08/21/18 08:56) Ua Culture If Indicated (08/21/18 08:56) Ondansetron Injection (Zofran Injectio (08/21/18 09:00) Ns Iv 1000 Ml (Sodium Chloride 0.9%) (08/21/18 08:56) Famotidine Injection (Pepcid Injection) (08/21/18 08:56) Saline Lock/Iv-Start (08/21/18 09:36) D5 Ns 1000 Ml Iv Solution (Dextrose 5%/0 (08/21/18 09:36) Urine Culture (08/21/18 09:51) Medications Given in ED Current Medications Medications Dose Ordered Sig/Dustin Route Start Time Stop Time Status Last Admin Dose Admin Dextrose/Sodium Chloride 1,000 ml @ 0 mls/hr Q0M ONCE IV 08/21/18 09:36 08/21/18 09:38 DC 08/21/18 10:11 1,000 MLS/HR Ondansetron HCl 4 mg ONCE ONCE IVP 08/21/18 09:00 08/21/18 09:01 DC 08/21/18 09:08 4 MG Vital Signs/I&O 08/21/18 08:51 Temp 97.3 Pulse 66 Resp 18 B/P (MAP) 154/96 (115) Pulse Ox 98 O2 Delivery Room Air Blood Pressure Mean: 115 Progress Progress Note : Progress Note Seen and evaluated. IV, labs, UA, normal saline 1 L bolus. Zofran 4 mg IV and Pepcid 20 mg IV ordered. Monitor patient. D5NS also ordered. 1020: Overall feeling better. UTI noted. Also noted ketones. D5NS will follow-up. That is running now. We'll treat him outpatient for the urinary tract infection. He states he has nausea medicine at home. Discharged home with return precautions. Patient verbalize understanding instructions and agreement with plan. Departure Impression Primary Impression: Cannabinoid hyperemesis syndrome Additional Impression: Urinary tract infection Qualified Codes: N30.00 - Acute cystitis without hematuria Disposition: HOME, SELF-CARE Condition: Improved Departure-Patient Inst. Decision time for Depature: 10:22 Referrals: NO,LOCAL PHYSICIAN (PCP/Family) Primary Care Physician Patient Instructions: Acute Abdomen (Belly Pain), Adult (DC), Nausea and Vomiting, Adult (DC), Urinary Tract Infection, Adult (DC) Add. Discharge Instructions: All discharge instructions reviewed with patient and/or family. Voiced understanding. Take medications as directed. Follow-up with your Dr. in a few days for recheck. You should reduce or quit use of marijuana as this is causing your vomiting syndrome. Drink plenty of fluids. Return for worsening, fever, vomiting , weakness, breathing problems or other concerns as needed. Scripts Cephalexin (Cephalexin) 500 Mg Tablet 500 MG PO BID, #14 TAB 0 Refills Prov: GILMER ANDRADE MD 08/21/18 GILMER ANDRADE MD Aug 21, 2018 09:03
[2018-08-21 09:07] LABS: BASOPHILS % (AUTO) 0 % (0-10); EOSINOPHILS % (AUTO) 0 % (0-10); HEMATOCRIT 50 % (40-54); HEMOGLOBIN 17.6 G/DL (13.3-17.7); LYMPHOCYTES # (AUTO) 1.9 X 10^3 (1.0-4.0); LYMPHOCYTES % (AUTO) 21 % (12-44); MEAN CORPUSCULAR HEMOGLOBIN 30 PG (25-34); MEAN CORPUSCULAR HGB CONC 35 G/DL (32-36); MEAN CORPUSCULAR VOLUME 85 FL (80-99); MEAN PLATELET VOLUME 9.1 FL (7.4-10.4); MONOCYTES # (AUTO) 0.9 X 10^3 (0.0-1.0); MONOCYTES % (AUTO) 10 % (0-12); NEUTROPHILS % (AUTO) 68 % (42-75); PLATELET COUNT 294 10^3/uL (130-400); RED CELL DISTRIBUTION WIDTH 13.3 % (10.0-14.5); WHITE BLOOD COUNT 8.7 10^3/uL (4.3-11.0)
[2018-08-21 09:31] LABS: ALANINE AMINOTRANSFERASE 20 U/L (0-55); ALBUMIN 5.7 GM/DL (3.2-4.5); ALKALINE PHOSPHATASE 64 U/L (40-136); BILIRUBIN,TOTAL 3.6 MG/DL (0.1-1.0); BUN/CREATININE RATIO 12; CALCIUM 11.2 MG/DL (8.5-10.1); CARBON DIOXIDE 27 MMOL/L (21-32); CHLORIDE 102 MMOL/L (98-107); CREATININE SERUM 1.11 MG/DL (0.60-1.30); GFR ESTIMATED > 60; GLUCOSE 113 MG/DL (70-105); POTASSIUM 3.6 MMOL/L (3.6-5.0); SODIUM 142 MMOL/L (135-145); TOTAL PROTEIN 9.1 GM/DL (6.4-8.2)
[2018-08-21] MEDS ORDERED: D5 NS 1000 ML IV SOLUTION 1,000 ML IV ONE (09:36)
[2018-08-21 09:59] LABS: BILIRUBIN,URINE NEGATIVE (NEGATIVE); CLARITY,URINE CLEAR; COLOR,URINE AMBER; GLUCOSE, URINE (UA) NEGATIVE (NEGATIVE); KETONES,URINE 3+ (NEGATIVE); LEUKOCYTE ESTERASE ,URINE 1+ (NEGATIVE); NITRITE,URINE NEGATIVE (NEGATIVE); PH,URINE 6 (5-9); PROTEIN,URINE 2+ (NEGATIVE); UROBILINOGEN,URINE 8 MG/DL (NORMAL)
[2018-08-21 10:12] LABS: BACTERIA,URINE FEW /HPF; SQUAMOUS EPITHELIAL CELL,UR RARE /HPF
[2018-08-21] MEDS ORDERED: CEPH500T PO (10:23)
[2018-08-21 10:57] VITALS: BP 126/66
== END 2018-08-21 10:57 | disposition home or self-care (01) ==
LOC: EDUNIT# 08:41 → ER 08:42
DX: F12.188 Cannabis abuse with other cannabis-induced disorder (principal); N39.0 Urinary tract infection, site not specified; F41.9 Anxiety disorder, unspecified; F12.10 Cannabis abuse, uncomplicated; Z77.22 Contact with and (suspected) exposure to environmental tobacco smoke (acute) (chronic)
CPT/HCPCS: 36415; 80053; 81000; 85025; 87088

== ENCOUNTER → 2018-09-20 | Emergency (ER) | payer SELFPAY ==
[~2018-09-20] MED LIST changes: +CEPH500T PO; +ONDA4TAB11 SL
== END | disposition left against medical advice (07) ==
LOC: EDUNIT# 21:14 → ER 21:15
DX: R11.10 Vomiting, unspecified (principal); R68.83 Chills (without fever)

== ENCOUNTER 2018-09-21 07:03 | Emergency (ER) | payer SELFPAY ==
[~2018-09-21] VITALS: Ht 200.7 cm; Wt 72.6 kg
[~2018-09-21 07:03] MED LIST changes: -ONDA4TAB11 SL
[2018-09-21] MEDS ORDERED: NS IV 1000 ML 1,000 ML IV ONE ×2 (07:21→08:08)
[2018-09-21] MEDS ORDERED: ONDANSETRON 4 MG/2 ML (SDV) Z0FRAN IVP ONE (07:30)
[2018-09-21 07:47] LABS: BASOPHILS % (AUTO) 0 % (0-10); EOSINOPHILS % (AUTO) 0 % (0-10); HEMATOCRIT 42 % (40-54); HEMOGLOBIN 15.1 G/DL (13.3-17.7); LYMPHOCYTES # (AUTO) 1.1 X 10^3 (1.0-4.0); LYMPHOCYTES % (AUTO) 10 % (12-44); MEAN CORPUSCULAR HEMOGLOBIN 31 PG (25-34); MEAN CORPUSCULAR HGB CONC 36 G/DL (32-36); MEAN CORPUSCULAR VOLUME 87 FL (80-99); MEAN PLATELET VOLUME 9.1 FL (7.4-10.4); MONOCYTES # (AUTO) 0.6 X 10^3 (0.0-1.0); MONOCYTES % (AUTO) 6 % (0-12); NEUTROPHILS # (AUTO) 8.8 X 10^3 (1.8-7.8); NEUTROPHILS % (AUTO) 84 % (42-75); PLATELET COUNT 313 10^3/uL (130-400); RED CELL DISTRIBUTION WIDTH 13.5 % (10.0-14.5); WHITE BLOOD COUNT 10.5 10^3/uL (4.3-11.0)
--- NOTE | 2018-09-21 07:55 | ED General ---
General Chief Complaint: Abdominal/GI Problems Stated Complaint: DEHYDRATED Nursing Triage Note: ARRIVED VIA AMB TO ROOM 05. STATES HE HAS NOT BEEN ABLE TO KEEP ANYTHING DOWN SINCE WED AND FEELING WEAK. Nursing Sepsis Screen: No Definite Risk Source of Information: Patient Exam Limitations: No Limitations History of Present Illness Date Seen by Provider: Sep 21, 2018 Time Seen by Provider: 07:15 Initial Comments This 23-year-old young man presents to the emergency room with complaints of myalgia, nausea, vomiting, and diarrhea for about 3 days. He reports playing a basketball game 3 days ago and being very weak and dizzy afterwards. He has not recovered since then. He feels dehydrated. Review of his chart notes that he has had 7 visits to the ER for cannabis related hyperemesis in the past 2 years. Patient states he does not believe this is from cannabis use because " it feels different". He does admit to using marijuana within the past month. He denies alcohol or other drug use. He is afebrile. Allergies and Home Medications Allergies Coded Allergies: No Known Drug Allergies (Unverified , 06/07/18) Home Medications Cephalexin 500 Mg Tablet, 500 MG PO BID Prescribed by: GILMER ANDRADE on 08/21/18 1023 Ondansetron 4 Mg Tab.rapdis, 4 MG SL Q4H PRN for NAUSEA/VOMITING Prescribed by: FAITH NAJERA on 09/21/18 0920 Prochlorperazine Maleate 10 Mg Tablet, 10 MG PO Q8H PRN for NAUSEA/VOMITING-1ST LINE Prescribed by: LOWELL PATTERSON on 12/14/16 1236 Prochlorperazine Maleate 10 Mg Tablet, 10 MG PO Q8H PRN for NAUSEA/VOMITING-1ST LINE Prescribed by: LOWELL PATTERSON on 01/22/18 1044 Prochlorperazine Maleate 10 Mg Tablet, 10 MG PO Q8H PRN for NAUSEA/VOMITING-1ST LINE Prescribed by: CLAUDIA DEL RIO on 01/29/18 1229 Patient Home Medication List Home Medication List Reviewed: Yes Review of Systems Review of Systems Constitutional: see HPI EENTM: no symptoms reported Respiratory: no symptoms reported Cardiovascular: no symptoms reported Gastrointestinal: see HPI Genitourinary: no symptoms reported Musculoskeletal: see HPI Skin: no symptoms reported Psychiatric/Neurological: See HPI Hematologic/Lymphatic: No Symptoms Reported Immunological/Allergic: no symptoms reported Past Qbblunq-Expknk-Ouibtw Hx Past Med/Social Hx: Reviewed and Corrections made Patient Social History Alcohol Use: Denies Use Recreational Drug Use: Yes Drug of Choice: MARIJUANA Smoking Status: Never a Smoker 2nd Hand Smoke Exposure: Yes Recent Foreign Travel: No Contact w/Someone Who Travel: No Recent Infectious Disease Expo: No Recent Hopitalizations: No Seasonal Allergies Seasonal Allergies: No Past Medical History Surgeries: No Respiratory: No Cardiac: No Neurological: No Reproductive Disorders: No Genitourinary: No Gastrointestinal: Yes (Cannabis hyperemesis syndrome) Musculoskeletal: No Endocrine: No HEENT: No Cancer: No Psychosocial: Yes (marijuana use) Anxiety Integumentary: No Blood Disorders: No Adverse Reaction/Blood Tranf: No Family Medical History No Pertinent Family Hx Physical Exam Vital Signs Vital Signs - First Documented 09/21/18 07:10 Temp 97.4 Pulse 75 Resp 16 B/P (MAP) 128/61 (83) Pulse Ox 97 O2 Delivery Room Air Capillary Refill : Less Than 3 Seconds Height, Weight, BMI Height: 6'7.00" Weight: 160lbs. oz. 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 Skin: Normal Color, Warm/Dry Progress/Results/Core Measures Suspected Sepsis Recent Fever Within 48 Hours: No Infection Criteria Present: None New/Unexplained Altered Menta: No Sepsis Screen: No Definite Risk SIRS Temperature:97.4 Pulse: 75 Respiratory Rate: 16 Laboratory Tests 09/21/18 07:37: White Blood Count 10.5 Blood Pressure 128 /61 Mean: 83 Laboratory Tests 09/21/18 07:37: Creatinine 0.82, Platelet Count 313, Total Bilirubin 2.6H Results/Orders Lab Results Laboratory Tests Test 3/29/19 07:37 Range/Units White Blood Count 10.5 4.3-11.0 10^3/uL Red Blood Count 4.88 4.35-5.85 10^6/uL Hemoglobin 15.1 13.3-17.7 G/DL Hematocrit 42 40-54 % Mean Corpuscular Volume 87 80-99 FL Mean Corpuscular Hemoglobin 31 25-34 PG Mean Corpuscular Hemoglobin Concent 36 32-36 G/DL Red Cell Distribution Width 13.5 10.0-14.5 % Platelet Count 313 130-400 10^3/uL Mean Platelet Volume 9.1 7.4-10.4 FL Neutrophils (%) (Auto) 84 H 42-75 % Lymphocytes (%) (Auto) 10 L 12-44 % Monocytes (%) (Auto) 6 0-12 % Eosinophils (%) (Auto) 0 0-10 % Basophils (%) (Auto) 0 0-10 % Neutrophils # (Auto) 8.8 H 1.8-7.8 X 10^3 Lymphocytes # (Auto) 1.1 1.0-4.0 X 10^3 Monocytes # (Auto) 0.6 0.0-1.0 X 10^3 Eosinophils # (Auto) 0.0 0.0-0.3 10^3/uL Basophils # (Auto) 0.0 0.0-0.1 10^3/uL Sodium Level 142 135-145 MMOL/L Potassium Level 3.8 3.6-5.0 MMOL/L Chloride Level 106 98-107 MMOL/L Carbon Dioxide Level 19 L 21-32 MMOL/L Anion Gap 17 H 5-14 MMOL/L Blood Urea Nitrogen 12 7-18 MG/DL Creatinine 0.82 0.60-1.30 MG/DL Estimat Glomerular Filtration Rate > 60 BUN/Creatinine Ratio 15 Glucose Level 140 H 70-105 MG/DL Calcium Level 10.2 H 8.5-10.1 MG/DL Corrected Calcium 8.5-10.1 MG/DL Magnesium Level 1.9 1.8-2.4 MG/DL Total Bilirubin 2.6 H 0.1-1.0 MG/DL Aspartate Amino Transf (AST/SGOT) 23 5-34 U/L Alanine Aminotransferase (ALT/SGPT) 38 0-55 U/L Alkaline Phosphatase 52 40-136 U/L Total Creatine Kinase 181 30-200 U/L Total Protein 7.5 6.4-8.2 GM/DL Albumin 4.8 H 3.2-4.5 GM/DL Lipase 4 L 8-78 U/L Serum Alcohol < 10 <10 MG/DL My Orders Orders - FAITH LUCIO MD Alcohol (09/21/18 07:21) Cbc With Automated Diff (09/21/18 07:21) Comprehensive Metabolic Panel (09/21/18 07:21) Creatine Kinase (09/21/18 07:21) Drug Screen Stat (Urine) (09/21/18 07:21) Lipase (09/21/18 07:21) Magnesium (09/21/18 07:21) Ua Culture If Indicated (09/21/18 07:21) Saline Lock/Iv-Start (09/21/18 07:21) Ns Iv 1000 Ml (Sodium Chloride 0.9%) (09/21/18 07:21) Ondansetron Injection (Zofran Injectio (09/21/18 07:30) Saline Lock/Iv-Start (09/21/18 08:08) Ns Iv 1000 Ml (Sodium Chloride 0.9%) (09/21/18 08:08) Medications Given in ED Current Medications Medications Dose Ordered Sig/Dustin Route Start Time Stop Time Status Last Admin Dose Admin Ondansetron HCl 8 mg ONCE ONCE IVP 09/21/18 07:30 09/21/18 07:31 DC 09/21/18 07:27 8 MG Sodium Chloride 1,000 ml @ 0 mls/hr Q0M ONCE IV 09/21/18 07:21 09/21/18 07:23 DC 09/21/18 07:28 1,000 MLS/HR Sodium Chloride 1,000 ml @ 0 mls/hr Q0M ONCE IV 09/21/18 08:08 09/21/18 08:10 DC 09/21/18 08:13 1,000 MLS/HR Vital Signs/I&O 09/21/18 07:10 Temp 97.4 Pulse 75 Resp 16 B/P (MAP) 128/61 (83) Pulse Ox 97 O2 Delivery Room Air Capillary Refill : Less Than 3 Seconds Blood Pressure Mean: 83 Progress Note #1: Progress Note Patient seen and examined. Labs pending. IV fluids and Zofran ordered. Progress Note #2: Progress Note Patient was hydrated with 2 L of IV normal saline. He would not or could not urinate for his urine specimen. Labs were unremarkable. Vital signs were normal. He had no vomiting while in the ER. He was dismissed home with a prescription for Zofran. I did address his marijuana addiction. By definition he has an addiction because of numerous ER visits related to marijuana use but persistent use despite these consequences. I encouraged him to seek assistance with treatment if he cannot stop on his own. See discharge instructions. Departure Impression Primary Impression: Nausea vomiting and diarrhea Additional Impressions: Marijuana abuse Myalgia Disposition: HOME, SELF-CARE Condition: Improved Departure-Patient Inst. Decision time for Depature: 09:10 Referrals: NO,LOCAL PHYSICIAN (PCP/Family) Primary Care Physician Patient Instructions: Marijuana Use and Addiction, Nausea and Vomiting, Adult Add. Discharge Instructions: Drink plenty of clear liquids. Gradually advance your diet with small quantities of bland food as tolerated. You may take Tylenol and/or ibuprofen for pain. Establish with a primary care provider as soon as possible. If you wish to follow-up at the [facility], you may call them [phone]. Eliminate use of psychoactive substances such as marijuana. If you're unable to stop this on your own, seek help. Return to care if you're having worsening symptoms. All discharge instructions reviewed with patient and/or family. Voiced understanding. Scripts Ondansetron (Ondansetron Odt) 4 Mg Tab.rapdis 4 MG SL Q4H PRN for NAUSEA/VOMITING, #10 TAB Prov: FAITH LUCIO MD 09/21/18 FAITH LUCIO MD Sep 21, 2018 07:55
[2018-09-21 08:07] LABS: ALANINE AMINOTRANSFERASE 38 U/L (0-55); ALBUMIN 4.8 GM/DL (3.2-4.5); ALKALINE PHOSPHATASE 52 U/L (40-136); BILIRUBIN,TOTAL 2.6 MG/DL (0.1-1.0); BUN/CREATININE RATIO 15; CALCIUM 10.2 MG/DL (8.5-10.1); CARBON DIOXIDE 19 MMOL/L (21-32); CHLORIDE 106 MMOL/L (98-107); CREATINE KINASE 181 U/L (30-200); CREATININE SERUM 0.82 MG/DL (0.60-1.30); GFR ESTIMATED > 60; GLUCOSE 140 MG/DL (70-105); LIPASE 4 U/L (8-78); MAGNESIUM 1.9 MG/DL (1.8-2.4); POTASSIUM 3.8 MMOL/L (3.6-5.0); SODIUM 142 MMOL/L (135-145); TOTAL PROTEIN 7.5 GM/DL (6.4-8.2)
--- NOTE | 2018-09-21 08:07 | NUR ---
NOTIFIED PT THAT WE NEEDED A URINE SAMPLE ET URINAL GIVEN.
--- NOTE | 2018-09-21 09:05 | NUR ---
PT STATES HE STILL CAN'T PEE. NOTIFIED.
--- NOTE | 2018-09-21 09:06 | NUR ---
IN ROOM TO TALK TO PT.
[2018-09-21] MEDS ORDERED: ONDA4TAB11 SL (09:20)
[2018-09-21 09:26] VITALS: BP 112/60
== END 2018-09-21 09:26 | disposition home or self-care (01) ==
LOC: EDUNIT# 07:03 → ER 07:05
DX: R11.2 Nausea with vomiting, unspecified (principal); R19.7 Diarrhea, unspecified; F12.10 Cannabis abuse, uncomplicated; M79.10 Myalgia, unspecified site; F41.9 Anxiety disorder, unspecified
CPT/HCPCS: 36415; 80053; 80320; 82550; 83690; 83735; 85025

== ENCOUNTER 2019-05-25 07:55 | Emergency (ER) | payer SELFPAY ==
[~2019-05-25] VITALS: Ht 197 cm; Wt 86.0 kg
[~2019-05-25 07:55] MED LIST changes: +ONDA4TAB11 SL
--- NOTE | 2019-05-25 08:04 | ED Upper Extremity ---
General Stated Complaint: R HAND INJ Source: patient Exam Limitations: no limitations History of Present Illness Date Seen by Provider: May 25, 2019 Time Seen by Provider: 07:55 Initial Comments History presents ER by private conveyance with chief complaint that at 2200 yesterday he punched a window with his right hand and is having some pain and swelling that has slightly improved today. He is afraid he may have fractured some bones. He has no previous history of injury to this hand. No significant medical history. He took some Tylenol earlier today and has been icing the hand. He is not having any numbness or tingling. Allergies and Home Medications Allergies Coded Allergies: No Known Drug Allergies (Unverified , 06/07/18) Home Medications Cephalexin 500 Mg Tablet, 500 MG PO BID Prescribed by: GILMER ANDRADE on 08/21/18 1023 Ondansetron 4 Mg Tab.rapdis, 4 MG SL Q4H PRN for NAUSEA/VOMITING Prescribed by: FAITH NAJERA on 09/21/18 0920 Prochlorperazine Maleate 10 Mg Tablet, 10 MG PO Q8H PRN for NAUSEA/VOMITING-1ST LINE Prescribed by: LOWELL PATTERSON on 12/14/16 1236 Prochlorperazine Maleate 10 Mg Tablet, 10 MG PO Q8H PRN for NAUSEA/VOMITING-1ST LINE Prescribed by: LOWELL PATTERSON on 01/22/18 1044 Prochlorperazine Maleate 10 Mg Tablet, 10 MG PO Q8H PRN for NAUSEA/VOMITING-1ST LINE Prescribed by: CLAUDIA DEL RIO on 01/29/18 1229 Patient Home Medication List Home Medication List Reviewed: Yes Review of Systems Constitutional: No chills, No fever Respiratory: No cough, No short of breath Cardiovascular: No chest pain, No palpitations Gastrointestinal: No abdominal pain, No nausea Past Dhocwih-Jvgsmg-Fymyyz Hx Patient Social History Alcohol Use: Denies Use Recreational Drug Use: Yes Drug of Choice: MARIJUANA Smoking Status: Never a Smoker 2nd Hand Smoke Exposure: Yes Recent Foreign Travel: No Contact w/Someone Who Travel: No Recent Hopitalizations: No Seasonal Allergies Seasonal Allergies: No Past Medical History Surgeries: No Respiratory: No Cardiac: No Neurological: No Reproductive Disorders: No Genitourinary: No Gastrointestinal: Yes (Cannabis hyperemesis syndrome) Musculoskeletal: No Endocrine: No HEENT: No Cancer: No Psychosocial: Yes (marijuana use) Anxiety Integumentary: No Blood Disorders: No Adverse Reaction/Blood Tranf: No Family Medical History No Pertinent Family Hx Physical Exam Vital Signs Vital Signs - First Documented 05/25/19 08:07 Temp 36.8 Pulse 80 Resp 20 B/P (MAP) 142/85 (104) Pulse Ox 100 O2 Delivery Room Air Capillary Refill : Height, Weight, BMI Height: 6'7.00" Weight: 160lbs. oz. 72.160529gf; 22.53 BMI Method:Stated General Appearance: WD/WN, no apparent distress HEENT: PERRL/EOMI, pharynx normal Cardiovascular: normal peripheral pulses, regular rate, rhythm, other (brisk capillary refill less than 2 seconds right digits) Respiratory: no respiratory distress, no accessory muscle use Elbow/Forearm: normal inspection, non-tender, no evidence of injury, normal ROM, Right Wrist: Yes normal inspection, Yes non-tender, Yes no evidence of injury, Yes normal ROM Hand: normal ROM, Right, bone tenderness (third fourth and fifth metacarpals), ecchymosis, swelling (dorsum ulnar side of the hand) Neurologic/Tendon: normal sensation, normal motor functions, normal tendon functions, responds to pain, no evidence tendon injury Neurologic/Psychiatric: no motor/sensory deficits, alert, normal mood/affect, oriented x 3 Skin: warm/dry Progress/Results/Core Measures Results/Orders My Orders Orders - CLAUDIA DEL RIO J Hand, Right, 3 Views (05/25/19 08:00) Vital Signs/I&O 05/25/19 08:07 Temp 36.8 Pulse 80 Resp 20 B/P (MAP) 142/85 (104) Pulse Ox 100 O2 Delivery Room Air Progress Progress Note : Time: 08:03 Progress Note Neurovascularly intact. Swelling over the third fourth and fifth metacarpals. Obtain x-rays. He has declined anything for pain at this time. Diagnostic Imaging Diagonstic Imaging: Xray Plain Films/CT/US/NM/MRI: hand (right) Comments Proximal fifth metacarpal comminuted, nondisplaced fracture of the head. Soft tissue swelling seen. NAME: AQUILES BRANNON Brandon [facility] REC#: [id number] PT STATUS: REG ER : 1995 PHYSICIAN: CLAUDIA DEL RIO MD ADMIT DATE: 05/25/19/ER Signed POSDate of Exam:05/25/19 HAND, RIGHT, 3 VIEWS CLINICAL HISTORY: Punched window. Right hand pain. COMPARISON: None TECHNIQUE: 3 views of the right hand. FINDINGS: There is a comminuted fracture involving the base of the right 5th metacarpal with intra-articular extension into the right 5th CMC joint. No other fractures are visualized in the right hand. There is edema along the ulnar aspect of the right hand. IMPRESSION: 1. Acute comminuted fracture involving the base of the right 5th metacarpal with intra-articular extension into the right 5th CMC joint. Dictated by: Dictated on workstation # [id number] Dict: 05/25/19825 Trans: 05/25/19828 CV [id number] Interpreted by: FLORENTIN HUSAIN DO Electronically signed by: FLORENTIN HUSAIN DO 05/25/19828 Reviewed: Reviewed by Me Departure Impression Primary Impression: Fracture of fifth metacarpal bone of right hand Qualified Codes: S62.346A - Nondisplaced fracture of base of fifth metacarpal bone, right hand, initial encounter for closed fracture Disposition: HOME, SELF-CARE Condition: Stable Departure-Patient Inst. Decision time for Depature: 08:33 Referrals: DEO ARIAS,LOCAL PHYSICIAN (PCP) Primary Care Physician Patient Instructions: Hand Fracture (DC) Add. Discharge Instructions: Elevate the hand above the level of your heart for swelling or pain. Ice for 20 minutes on every 4 hours for the first 2-3 days. Tylenol 1000 mg every 8 hours as needed for pain. Ibuprofen 800 mg every 8 hours as needed for pain. Call the surgeon Dr. Arias for follow-up appointment in the next week for reexamination. If you have significant pain not relieved by the above measures then you can use hydrocodone one tablet every 6 hours as needed. It will cause drowsiness and constipation. Scripts Hydrocodone Bit/Acetaminophen (Hydrocodone/Acetaminophen 5/325mg Tablet) 1 Tab Tab 1 EACH PO Q4-6HR PRN for PAIN-MODERATE MDD 10, #10 TAB 0 Refills Prov: CLAUDIA DEL RIO 05/25/19 Work/School Note: Work Release Form Date Seen in the Emergency Department: May 25, 2019 Return to Work: May 26, 2019 Restrictions: Need Release from Doctor Other Restrictions Listed Below: Do not use right hand until 06/10/19. CLAUDIA DEL RIO May 25, 2019 08:04 POS
--- NOTE | 2019-05-25 08:29 | Diagnostic Imaging Report ---
CLINICAL HISTORY: Punched window. Right hand pain. COMPARISON: None TECHNIQUE: 3 views of the right hand. FINDINGS: There is a comminuted fracture involving the base of the right 5th metacarpal with intra-articular extension into the right 5th CMC joint. No other fractures are visualized in the right hand. There is edema along the ulnar aspect of the right hand. IMPRESSION: 1. Acute comminuted fracture involving the base of the right 5th metacarpal with intra-articular extension into the right 5th CMC joint. Dictated by: Dictated on workstation # [id number]
[2019-05-25] MEDS ORDERED: ACHD5005 PO (08:33)
[2019-05-25 08:36] VITALS: BP 126/89
== END 2019-05-25 08:48 | disposition home or self-care (01) ==
LOC: EDUNIT# 07:55 → ER 07:56
DX: S62.346A Nondisplaced fracture of base of fifth metacarpal bone, right hand, initial encounter for closed fracture (principal); F41.9 Anxiety disorder, unspecified; Z77.22 Contact with and (suspected) exposure to environmental tobacco smoke (acute) (chronic); W22.8XXA Striking against or struck by other objects, initial encounter
CPT/HCPCS: 73130